=== PATIENT | female | born 1940 | race Caucasian/White ===

== ENCOUNTER 2018-03-19 09:21 | Emergency (ER) | payer MEDICARE, MEDICAID ==
[~2018-03-19] VITALS: Ht 162.6 cm; Wt 81.6 kg
[~2018-03-19 09:21] MED LIST: ACET-868 PO; ATEN50TA PO; LISI-603 PO; METF-442 PO
--- NOTE | 2018-03-19 10:35 | NUR ---
WOUND CARE RENDERED, TOLERATED WELL.
--- NOTE | 2018-03-19 10:44 | NUR ---
JOHNNA OFFICERS AT BS.
--- NOTE | 2018-03-19 11:18 | NUR ---
Patient discharged to home in stable condition. Written and verbal after care instructions given. Patient verbalizes understanding of instruction.
[2018-03-19 11:35] VITALS: BP 155/71
== END 2018-03-19 11:37 | disposition home or self-care (01) ==
LOC: ER 09:25
DX: S51.811A Laceration without foreign body of right forearm, initial encounter (principal); S20.219A Contusion of unspecified front wall of thorax, initial encounter; E11.9 Type 2 diabetes mellitus without complications; I10 Essential (primary) hypertension; D32.9 Benign neoplasm of meninges, unspecified; V29.49XA Motorcycle driver injured in collision with other motor vehicles in traffic accident, initial encounter; Y93.89 Activity, other specified; Y92.89 Other specified places as the place of occurrence of the external cause; Y99.8 Other external cause status
CPT/HCPCS: 71045-TC; A4606; A6402; Z7610

== ENCOUNTER 2021-08-25 13:33 | Inpatient (IN) | payer MEDICARE, OTHER ==
[~2021-08-25] VITALS: Ht 167.6 cm; Wt 87.5 kg
[~2021-08-25 13:33] MED LIST changes: -LISI-603 PO; +LISI20TA30 PO
--- NOTE | 2021-08-25 13:47 | NUR ---
SENT BY DR. RODRIGUEZ FOR CHEST PAIN, HIGH BLOOD PRESSURE AND BLADDER INFECTION. PT IS MULTI DRUG RESISTANT. THE PATIENT IS ALERT AND ORIENTED X4. DENIES ANY PAIN. IN ROOM AIR AND DENIES SOB. RESPIRATION REGULAR AND UNLABORED. ATTACHED TO THE MONITOR. WILL CONTINUE TO MONITOR THE PATIENT.
--- NOTE | 2021-08-25 14:00 | NUR ---
STARTED LINE, BLOOD SPECIMEN COLLECTED AND SENT TO THE LAB. THE LINE IS SALINE LOCKED.
[2021-08-25] MEDS ORDERED: LORA-258 PO (14:37)
[2021-08-25] MEDS ORDERED: BUSP10TA35 PO (14:37)
[2021-08-25] MEDS ORDERED: MEMA5TAB42 PO (14:37)
[2021-08-25] MEDS ORDERED: LOSA1TAB39 PO (14:37)
[2021-08-25] MEDS ORDERED: CYAN500T9 PO (14:37)
[2021-08-25] MEDS ORDERED: NAPR1TAB38 PO (14:37)
[2021-08-25] MEDS ORDERED: ESTR42.511 VG (14:37)
[2021-08-25] MEDS ORDERED: CALC500T52 PO (14:37)
[2021-08-25] MEDS ORDERED: MIRT-91 PO (14:37)
[2021-08-25] MEDS ORDERED: ACET1TAB23 PO (14:37)
[2021-08-25] MEDS ORDERED: CARV25TA2 PO (14:37)
[2021-08-25] MEDS ORDERED: INSU100V7 SQ (14:37)
[2021-08-25] MEDS ORDERED: DICL100G34 TP (14:37)
[2021-08-25] MEDS ORDERED: ATOR40TA PO (14:37)
[2021-08-25] MEDS ORDERED: ALEN70TA80 PO (14:37)
[2021-08-25] MEDS ORDERED: LIDO700A30 TD (14:37)
[2021-08-25] MEDS ORDERED: APIX2.5T PO (14:37)
[2021-08-25] MEDS ORDERED: DULA1.5P SQ (14:37)
[2021-08-25] MEDS ORDERED: ERGO500093 PO (14:37)
[2021-08-25] MEDS ORDERED: ICOS1CAP PO (14:37)
[2021-08-25] MEDS ORDERED: FERR324T PO (14:37)
--- NOTE | 2021-08-25 15:08 | NUR ---
COVID SWAB DONE AND SENT TO THE LAB
[2021-08-25 15:15] LABS: BASOPHILS # (AUTO) 0.1 K/uL (0.0-0.2); BASOPHILS % (AUTO) 0.9 % (0.0-2.0); HEMATOCRIT 36 % (33-45); LYMPHOCYTES # (AUTO) 1.6 K/uL (0.8-4.8); LYMPHOCYTES % (AUTO) 24.2 % (20.0-44.0); MEAN CORPUSCULAR HGB CONC 33 g/dl (31.0-36.0); MEAN CORPUSCULAR VOLUME 83 fL (82-100); MONOCYTES # (AUTO) 0.4 K/uL (0.1-1.30); MONOCYTES % (AUTO) 6.2 % (2.0-12.0); NEUTROPHILS # (AUTO) 4.4 K/uL (1.8-8.9); NEUTROPHILS % (AUTO) 66.7 % (43.0-81.0); PLATELET COUNT (AUTO) 284 K/uL (150-450); RED BLOOD CELL COUNT(AUTO) 4.37 MIL/uL (4.0-5.2); WHITE BLOOD COUNT (AUTO) 6.6 K/uL (4.3-11.0)
[2021-08-25 15:16] LABS: BILIRUBIN,URINE NEGATIVE (NEGATIVE); COLOR,URINE YELLOW (YELLOW); LEUKOCYTE ESTERASE ,URINE LARGE (NEGATIVE); NITRITE, URINE POSITIVE (NEGATIVE); PH,URINE 6.5 (5.0-8.0); PROTEIN,URINE TRACE mg/dl (NEGATIVE); UGLUCOSE NEGATIVE (NEGATIVE)
[2021-08-25 15:38] LABS: CALCIUM, SERUM 9.3 mg/dL (8.5-10.1); CARBON DIOXIDE 28 mmol/L (21-32); CHLORIDE 101 mmol/L (98-107); CREATININE 1.1 mg/dL (0.6-1.3); GLUCOSE 158 mg/dL (74-106); POTASSIUM 3.3 mmol/L (3.5-5.1); SODIUM SERUM 141 mmol/L (136-145); UREA NITROGEN, BLOOD 18 mg/dL (7-18)
[2021-08-25 15:51] LABS: BACTERIA,URINE 4+ /HPF (None Seen); SQUAMOUS EPITHELIAL CELL,UR Few /HPF (None Seen); WBC,URINE TOO NUMEROUS TO COUN /HPF (0-3)
[2021-08-25 15:52] LABS: ALANINE AMINOTRANSFERASE 22 U/L (12-78); ALBUMIN 3.9 g/dL (3.4-5.0); ALKALINE PHOSPHATASE 92 U/L (46-116); ASPARTATE AMINOTRANSFERASE 16 U/L (15-37); BILIRUBIN,TOTAL 0.6 mg/dL (0.2-1.0); TOTAL PROTEIN, SERUM 7.4 g/dL (6.4-8.2)
[2021-08-25] MEDS ORDERED: CEFTRIAXONE 1 G in IV D5W 50 ML IV ONE (16:00)
--- NOTE | 2021-08-25 16:05 | NUR ---
PICCLINE NURSE AT PT'S BEDSIDE. CONSENT FORM SIGNED BY PT; VERBALIZES UNDERSTANDING.
--- NOTE | 2021-08-25 16:15 | NUR ---
CALLED TO BED [phone]
--- NOTE | 2021-08-25 16:17 | NUR ---
CHRISTIAN PICCLINE PLACED; CXR ORDERED
--- NOTE | 2021-08-25 16:29 | NUR ---
MUTUEL CASHIER AT PT'S BEDSIDE
[2021-08-25] MEDS ORDERED: MAGNESIUM HYDROXIDE 30 ML UDC PO PRN (16:30)
[2021-08-25] MEDS ORDERED: MORPHINE SULFATE INJ 2 MG/ML DISP.SYRIN IV PRN (16:30)
[2021-08-25] MEDS ORDERED: MAG HYDROX/AL HYDROX/SIMETH 30 ML UDC PO PRN (16:30)
[2021-08-25] MEDS ORDERED: DEXTROSE 50%-WATER 50 ML DISP.SYRIN IV PRN (16:30)
[2021-08-25] MEDS ORDERED: ONDANSETRON HCL/PF 4 MG/2 ML VIAL IVP PRN (16:30)
[2021-08-25] MEDS ORDERED: LORAZEPAM 0.5 MG TABLET PO PRN (16:30)
[2021-08-25] MEDS ORDERED: ACETAMINOPHEN W/ CODEINE#3 1 EA TABLET PO PRN (16:30)
[2021-08-25] MEDS ORDERED: Z GUARD REMEDY 2 OZ OINT TP PRN (16:30)
[2021-08-25] MEDS ORDERED: POTASSIUM CHLORIDE 20 MEQ TAB.PRT.SR PO ONE ×2 (16:30→16:50)
--- NOTE | 2021-08-25 16:37 | NUR ---
REPORT GIVEN TO TANVI Spann RN FOR DIANA
[2021-08-25] MEDS ORDERED: NITROGLYCERIN PACKET 1 GM PACKET ONE (16:49)
[2021-08-25] MEDS: NITROGLYCERIN PACKET 1 GM PACKET TOP SCH ×3 (16:56→21:50)
--- NOTE | 2021-08-25 16:59 | NUR ---
THE PATIENT IS TRANSFERED TO [facility] IN STABLE CONDITION PER ACLS POLICY.
[2021-08-25] MEDS ORDERED: Medication Not On Formulary EA (Icosapent Ethyl (Vascepa) 2 GM) PO SCH (17:00)
--- NOTE | 2021-08-25 17:20 | NUR ---
PLASTIC PRESS OPERATOR NOTE RECEIVED PATIENT VIA GURNEY FROM ER. PATIENT IS A/O X4. PATIENT IS BREATHING EVENLY AND NONLABORED ON ROOM AIR. NO SIGNS OF DISTRESS NOTED, PATIENT COMPLAINS OF MILD CHEST PAIN. TELE MONITOR PLACED ON PATIENT. PATIENT HAS IV ACCESS TO CHRISTIAN PICC LINE, PATENT AND INTACT. SKIN CHECK PERFORMED C/D/I. NO EDEMA. ACTIVE BOWEL SOUNDS. PATIENT WAS PLACED ON ISOLATION PRECAUTIONS CONTACT FOR MDRO. PATIENT WAS ORIENTED TO THE ROOM AND HOW TO USE THE CALL LIGHT, BELONGINGS ACCOUNTED FOR. SAFETY MEASURES IN PLACE BED LOW LOCK AND CALL LIGHT WITHIN REACH. WILL CONTINUE TO MONITOR
--- NOTE | 2021-08-25 17:21 | NUR ---
RN NOTE VITALS BP 154/77, HR 76, RR 18, TEMP 97.7, O2 SAT 100 ON ROOM AIR.
[2021-08-25] MEDS: BLOOD SUGAR DIAGNOSTIC 1 EACH STRIP VI SCH ×2 (17:30→22:00)
[2021-08-25] MEDS: CALCIUM CARBONATE (1250) 500 MG TABLET PO SCH (17:30)
[2021-08-25] MEDS: ATORVASTATIN 40 MG TABLET PO SCH (17:30)
[2021-08-25] MEDS: MEMANTINE HCL 5 MG TABLET PO SCH (17:30)
[2021-08-25] MEDS: CARVEDILOL 12.5 MG TABLET PO SCH (17:31)
[2021-08-25] MEDS: APIXABAN 2.5 MG TABLET PO SCH (17:31)
[2021-08-25] MEDS: INSULIN REGULAR, HUMAN 100 UNIT/ML 3 ML VIAL SQ PRN (17:48)
--- NOTE | 2021-08-25 18:29 | NUR ---
SLIP COVER MAKER CLOSING NOTE PATIENT RESTING IN BED. PATIENT IS A/O X4. PATIENT IS BREATHING EVENLY AND NONLABORED ON ROOM AIR. NO SIGNS OF DISTRESS NOTED, PATIENT DENIES PAIN AT THIS TIME. TELE MONITOR ON PATIENT SHOWING NSR WITH OCCASIONAL PVCS. PATIENT HAS IV ACCESS TO CHRISTIAN PICC LINE, PATENT AND INTACT. PATIENT ON ISOLATION PRECAUTIONS CONTACT FOR MDRO. SAFETY MEASURES IN PLACE BED LOW LOCK AND CALL LIGHT WITHIN REACH, BED ALARM ON, WILL ENDORSE TO ONCOMING SHIFT
--- NOTE | 2021-08-25 19:45 | NUR ---
ENGINEERING AGENT OPENING NOTES PATIENT RESTING IN BED, ALERT/ORIENTED X 4, PT ABLE TO MAKE NEEDS KNOWN, PT DENIES PAIN AT THIS TIME. PATIENT IS BREATHING EVENLY AND UNLABORED ON ROOM AIR, NO SIGNS/SYMPTOMS OF DISTRESS NOTED. PT ON EXTERNAL SUPERVISOR ASSEMBLY ROOM SHOWING SINUS RHYTHM, HR: 69. IV ACCESS ON CHRISTIAN PICC LINE, PATENT AND INTACT. PATIENT ON ISOLATION PRECAUTIONS CONTACT FOR MDRO. SAFETY MEASURES IN PLACE: BED LOCKED IN LOW POSITION, SIDE RAILS UP X 2, CALL LIGHT WITHIN REACH, BED ALARM ON. WILL CONTINUE TO MONITOR PATIENT
[2021-08-25 20:00] VITALS: BP 124/72
[2021-08-25] MEDS: MIRTAZAPINE 15 MG TABLET PO SCH (21:50)
[2021-08-25] MEDS: *INSULIN REGULAR(HUMULIN R)HUM 100 UNIT/ML VIAL SQ PRN (22:18)
[2021-08-26] VITALS: BP 139/64
[2021-08-26 04:00] VITALS: BP 109/49
--- NOTE | 2021-08-26 06:23 | NUR ---
SAFETY COUNSELOR CLOSING NOTES PATIENT SLEEPING IN BED, APPEARS COMFORTABLE AND NOT IN ANY DISTRESS. NO SIGNIFICANT CHANGES THROUGHOUT SHIFT. PT DENIED CHEST PAIN THROUGHOUT SHIFT. PATIENT BREATHING EVENLY AND UNLABORED ON ROOM AIR, NO SIGNS/SYMPTOMS OF DISTRESS OR SOB NOTED. PT ON EXTERNAL SONOGRAPHER SHOWING SINUS RHYTHM, HR: 64. IV ACCESS: CHRISTIAN PICC LINE, PATENT AND INTACT. PATIENT ON ISOLATION PRECAUTIONS CONTACT FOR MDRO. MEDICATIONS GIVEN ORDERED, PT NEEDS MET THROUGHOUT SHIFT. SAFETY MEASURES IN PLACE: BED LOCKED IN LOW POSITION, SIDE RAILS UP X 2, CALL LIGHT WITHIN REACH, BED ALARM ON. WILL ENDORSE TO DAY SHIFT NURSE FOR CONTINUITY OF CARE
[2021-08-26] MEDS: ACETAMINOPHEN 325 MG TABLET PO PRN (06:49)
[2021-08-26] MEDS: BLOOD SUGAR DIAGNOSTIC 1 EACH STRIP VI SCH ×4 (07:02→21:39)
[2021-08-26] MEDS: INSULIN REGULAR, HUMAN 100 UNIT/ML 3 ML VIAL SQ PRN ×3 (07:10→17:39)
--- NOTE | 2021-08-26 07:16 | NUR ---
RN NOTES PATIENT WAS SEEN IN BED RESTING, EYES CLOSED, ABLE TO BE AWAKENED. A/O X4, SERBIAN-SPEAKING, UNDERSTANDS SOME UZBEK BUT ABLE TO MAKE NEEDS KNOWN. BREATHING EVEN AND UNLABORED, TOLERATING ROOM AIR. ON CARDIAC MONITORING, READING OF SR, HR IN THE 60'S TO 70'S, NO CARDIAC DISTRESS. PICC LINE AND PERIPHERAL IV LINE INTACT AND PATENT. PATIENT ABLE TO AMBULATE W/ SBA. SAFETY MEASURES IN PLACE. WILL CONTINUE TO MONITOR.
[2021-08-26 07:25] LABS: CALCIUM, SERUM 9.4 mg/dL (8.5-10.1); CREATININE 0.9 mg/dL (0.6-1.3); MAGNESIUM 1.6 mg/dL (1.8-2.4); PHOSPHORUS 4.2 mg/dL (2.5-4.9)
[2021-08-26 07:38] LABS: BASOPHILS # (AUTO) 0.1 K/uL (0.0-0.2); BASOPHILS % (AUTO) 1.1 % (0.0-2.0); EOSINOPHILS % (AUTO) 3.3 % (0.0-6.0); HEMATOCRIT 32 % (33-45); HEMOGLOBIN 10.9 g/dL (11.5-14.8); LYMPHOCYTES # (AUTO) 1.3 K/uL (0.8-4.8); LYMPHOCYTES % (AUTO) 24.1 % (20.0-44.0); MEAN CORPUSCULAR HGB CONC 34 g/dl (31.0-36.0); MEAN CORPUSCULAR VOLUME 83 fL (82-100); MONOCYTES # (AUTO) 0.4 K/uL (0.1-1.30); MONOCYTES % (AUTO) 7.6 % (2.0-12.0); NEUTROPHILS # (AUTO) 3.5 K/uL (1.8-8.9); NEUTROPHILS % (AUTO) 63.9 % (43.0-81.0); PLATELET COUNT (AUTO) 228 K/uL (150-450); RED BLOOD CELL COUNT(AUTO) 3.88 MIL/uL (4.0-5.2); WHITE BLOOD COUNT (AUTO) 5.4 K/uL (4.3-11.0)
[2021-08-26 08:00] VITALS: BP 155/73
[2021-08-26] MEDS: LIDOCAINE 5% (PATCH) 1 EA PATCH TP SCH (08:43)
[2021-08-26] MEDS: NITROGLYCERIN PACKET 1 GM PACKET TOP SCH ×2 (08:47→20:32)
[2021-08-26] MEDS: ASPIRIN 81 MG TAB.CHEW PO SCH (08:47)
[2021-08-26] MEDS: FERROUS SULFATE (325 MG) 325 MG/TAB TABLET PO SCH (08:47)
[2021-08-26] MEDS: busPIRone 5 MG TABLET PO SCH (08:47)
[2021-08-26] MEDS: CARVEDILOL 12.5 MG TABLET PO SCH ×2 (08:48→17:10)
[2021-08-26] MEDS: MEMANTINE HCL 5 MG TABLET PO SCH ×2 (08:48→17:09)
[2021-08-26] MEDS: APIXABAN 2.5 MG TABLET PO SCH ×2 (08:49→17:10)
[2021-08-26] MEDS ORDERED: CEFTRIAXONE 1GM BAG (ER ONLY) 1 GM/50 ML PIGGYBACK IV SCH (09:00)
--- NOTE | 2021-08-26 09:30 | NUR ---
RN NOTES PATIENT SEEN BY DR. GRECO W/ ORDER NOTED.
[2021-08-26] MEDS: Magnesium 1GM/D5W 100ML PREMIX 100 ML IV SCH ×2 (09:36→11:55)
--- NOTE | 2021-08-26 10:01 | NUR ---
RN NOTES CONSENT FORM SIGNED BY PATIENT FOR CT ANGIO OF THE HEART PROCEDURE. PER PATIENT, SHE IS TAKING METFORMIN AT HOME, NOTED IN THE CONTRAST CONSENT FORM.
[2021-08-26] MEDS ORDERED: IV NS 0.9% 250 ML IV ONE (10:45)
[2021-08-26] MEDS ORDERED: IOHEXOL-350 100 ML VIAL IV ONE (10:45)
--- NOTE | 2021-08-26 11:45 | NUR ---
RN NOTES PATIENT RETURNED FROM CTCA PROCEDURE VIA WHEELCHAIR, ACCOMPANIED BY 1 SUPPLY AIDE.
[2021-08-26 12:00] VITALS: BP 146/77
[2021-08-26 15:52] VITALS: BP 140/75
[2021-08-26] MEDS: CEFTRIAXONE 1 G in IV D5W 50 ML IV SCH (16:12)
[2021-08-26] MEDS: CALCIUM CARBONATE (1250) 500 MG TABLET PO SCH (17:09)
[2021-08-26] MEDS: ATORVASTATIN 40 MG TABLET PO SCH (17:09)
--- NOTE | 2021-08-26 19:15 | NUR ---
RN NOTES PATIENT RESTING IN BED, NOT IN ACUTE DISTRESS. REFUSED TELE AT THIS TIME. DUE MEDS GIVEN TODAY. AMBULATES W/ STEADY GAIT. SAFETY MEASURES MAINTAINED. ENDORSED TO NANOTECHNOLOGY ENGINEERING TECHNOLOGIST RN FOR DIANA.
--- NOTE | 2021-08-26 20:00 | NUR ---
SHEAR GRINDER OPERATOR HELPER OPENING NOTES PATIENT RESTING IN BED, ALERT/ORIENTED X 4, PT PRIMARILY PRYDEINIG SPEAKING BUT ABLE TO SPEAK SOME SERBIAN, PT ABLE TO MAKE NEEDS KNOWN. PT DENIES PAIN AND DISCOMFORT AT THIS TIME. PATIENT IS BREATHING EVENLY AND UNLABORED ON ROOM AIR, NO SIGNS/SYMPTOMS OF DISTRESS NOTED. PT ON EXTERNAL REPORTING LEAD SHOWING SINUS RHYTHM, HR: 66. IV ACCESS ON CHRISTIAN PICC LINE, PATENT AND INTACT. PATIENT ON CONTACT ISOLATION PRECAUTIONS. SAFETY MEASURES IN PLACE: BED LOCKED IN LOW POSITION, SIDE RAILS UP X 2, CALL LIGHT AND TABLE WITHIN REACH. WILL CONTINUE TO MONITOR PATIENT
[2021-08-26 20:39] VITALS: BP 154/77
[2021-08-26] MEDS: MIRTAZAPINE 15 MG TABLET PO SCH (21:39)
[2021-08-26] MEDS: *INSULIN REGULAR(HUMULIN R)HUM 100 UNIT/ML VIAL SQ PRN (21:41)
[2021-08-27] VITALS (7 sets, daily range): BP systolic 112–153; BP diastolic 73–78
--- NOTE | 2021-08-27 06:36 | NUR ---
POTABLE WATER TREATMENT OPERATOR CLOSING NOTES PATIENT SLEEPING IN BED, APPEARS COMFORTABLE AND NOT IN ANY DISTRESS. NO SIGNIFICANT CHANGES THROUGHOUT SHIFT. PT DENIED CHEST PAIN THROUGHOUT SHIFT. PATIENT BREATHING EVENLY AND UNLABORED ON ROOM AIR, NO SIGNS/SYMPTOMS OF DISTRESS OR SOB NOTED. PT ON EXTERNAL PRINTED PRODUCTS ASSEMBLER SHOWING SINUS RHYTHM, HR: 68. IV ACCESS: CHRISTIAN PICC LINE, PATENT AND INTACT. PATIENT ON CONTACT ISOLATION PRECAUTIONS. MEDICATIONS GIVEN ORDERED, PT NEEDS MET THROUGHOUT SHIFT. SAFETY MEASURES IN PLACE: BED LOCKED IN LOW POSITION, SIDE RAILS UP X 2, CALL LIGHT WITHIN REACH. WILL ENDORSE TO ONCOMING NURSE FOR CONTINUITY OF CARE
[2021-08-27] MEDS: BLOOD SUGAR DIAGNOSTIC 1 EACH STRIP VI SCH ×4 (06:57→22:21)
[2021-08-27] MEDS: INSULIN REGULAR, HUMAN 100 UNIT/ML 3 ML VIAL SQ PRN ×4 (06:59→22:21)
--- NOTE | 2021-08-27 07:13 | NUR ---
RN NOTES PATIENT WAS SEEN IN BED RESTING, EYES CLOSED, ABLE TO BE AWAKENED. A/O X4, ANDORRAN-SPEAKING, UNDERSTANDS SOME SERBIAN BUT ABLE TO MAKE NEEDS KNOWN. BREATHING EVEN AND UNLABORED, TOLERATING ROOM AIR. ON CARDIAC MONITORING, READING OF SR, HR IN THE 70'S, NO CARDIAC DISTRESS. PICC LINE AND PERIPHERAL IV LINE INTACT AND PATENT. PATIENT ABLE TO AMBULATE W/ SBA. SAFETY MEASURES IN PLACE. WILL CONTINUE TO MONITOR.
[2021-08-27 07:29] LABS: BASOPHILS # (AUTO) 0.1 K/uL (0.0-0.2); BASOPHILS % (AUTO) 1.2 % (0.0-2.0); EOSINOPHILS % (AUTO) 3.8 % (0.0-6.0); HEMATOCRIT 35 % (33-45); HEMOGLOBIN 11.2 g/dL (11.5-14.8); LYMPHOCYTES # (AUTO) 1.2 K/uL (0.8-4.8); LYMPHOCYTES % (AUTO) 24.8 % (20.0-44.0); MEAN CORPUSCULAR HGB CONC 33 g/dl (31.0-36.0); MEAN CORPUSCULAR VOLUME 83 fL (82-100); MONOCYTES # (AUTO) 0.3 K/uL (0.1-1.30); NEUTROPHILS # (AUTO) 3.1 K/uL (1.8-8.9); NEUTROPHILS % (AUTO) 63.2 % (43.0-81.0); PLATELET COUNT (AUTO) 234 K/uL (150-450); RED BLOOD CELL COUNT(AUTO) 4.16 MIL/uL (4.0-5.2)
[2021-08-27 08:04] LABS: CALCIUM, SERUM 9.9 mg/dL (8.5-10.1)
--- NOTE | 2021-08-27 09:10 | NUR ---
RN NOTES PATIENT SEEN BY DR. MENDOZA TODAY FOR FOLLOW-UP.
[2021-08-27] MEDS: LIDOCAINE 5% (PATCH) 1 EA PATCH TP SCH (09:30)
[2021-08-27] MEDS: NITROGLYCERIN PACKET 1 GM PACKET TOP SCH ×2 (09:31→21:44)
[2021-08-27] MEDS: busPIRone 5 MG TABLET PO SCH (09:31)
[2021-08-27] MEDS: CARVEDILOL 12.5 MG TABLET PO SCH ×2 (09:32→16:52)
[2021-08-27] MEDS: VALSARTAN 80 MG TABLET PO SCH (09:33)
[2021-08-27] MEDS: MEMANTINE HCL 5 MG TABLET PO SCH ×2 (09:33→16:53)
[2021-08-27] MEDS: FERROUS SULFATE (325 MG) 325 MG/TAB TABLET PO SCH (09:33)
[2021-08-27] MEDS: ASPIRIN 81 MG TAB.CHEW PO SCH (09:33)
[2021-08-27] MEDS: APIXABAN 2.5 MG TABLET PO SCH ×2 (09:35→17:14)
--- NOTE | 2021-08-27 13:15 | NUR ---
RN NOTES PATIENT CURRENTLY SLEEPING IN BED AT THE MOMENT. PROVIDED W/ EXTRA BLANKET.
[2021-08-27] MEDS: CEFTRIAXONE 1 G in IV D5W 50 ML IV SCH (15:51)
[2021-08-27] MEDS: ATORVASTATIN 40 MG TABLET PO SCH (16:53)
[2021-08-27] MEDS: CALCIUM CARBONATE (1250) 500 MG TABLET PO SCH (16:53)
--- NOTE | 2021-08-27 18:47 | NUR ---
RN NOTES PATIENT IN BED RESTING, AWAKE AND VERBALLY RESPONSIVE. NOT IN ACUTE DISTRESS. TOLERATES ROOM AIR. PICC LINE PATENT AND INTACT. AMBULATES W/ STEADY GAIT. D/C'D TELE TODAY. SAFETY MEASURES MAINTAINED. WILL ENDORSE TO SUPERVISOR MATTRESS AND BOXSPRINGS RN FOR DIANA.
--- NOTE | 2021-08-27 19:30 | NUR ---
RN OPENING NOTES: RECEIVED PT A/OX4 IN BED IN NO S/SX OF ACUTE DISTRESS AT THIS TIME. NO SOB NOTED. PATIENT'S BREATHING IS EVEN AND UNLABORED. PATIENT IS ON ROOM AIR AND AMBULATORY; TOLERATING WELL. PATIENT ON CARDIAC DIET; TOLERATES WELL. NOTED IV SITE ON R UA PICC LINE ; PATENT, INTACT AND FLUSHING WELL; NO S/S OF INFECTION OR INFILTRATION. SAFETY MEASURES HAVE BEEN PROVIDED AND IMPLEMENTED. PATIENT BED ALARM IS ON. HEAD OF BED ELEVATED. BED IS LOCKED, IN LOWEST POSITION AND SIDE RAILS UP. CALL LIGHT WITHIN REACH OF THE PATIENT. APPLICABLE ISOLATION PRECAUTIONS IN PLACE. WILL CONTINUE TO MONITOR AND REASSESS FOR ANY CHANGES AND WILL CARRY OUT ANY ONGOING AND ACTIVE MD ORDER.
[2021-08-27] MEDS: MIRTAZAPINE 15 MG TABLET PO SCH (21:44)
--- NOTE | 2021-08-27 22:00 | NUR ---
RN NOTES ACCU CHECK DONE; 191MG/DL; 3U OF INSULIN GIVEN.
[2021-08-28] MEDS: BLOOD SUGAR DIAGNOSTIC 1 EACH STRIP VI SCH ×2 (06:35→12:26)
[2021-08-28] MEDS: *INSULIN REGULAR(HUMULIN R)HUM 100 UNIT/ML VIAL SQ PRN (06:38)
[2021-08-28] MEDS: INSULIN REGULAR, HUMAN 100 UNIT/ML 3 ML VIAL SQ PRN ×2 (06:41→12:30)
--- NOTE | 2021-08-28 06:42 | NUR ---
RN NOTES ACCU CHECK DONE; 208MG/DL; 6U OF INSULIN GIVEN.
--- NOTE | 2021-08-28 06:51 | NUR ---
RN CLOSING NOTE: PATIENT REMAINS IN ROOM IN NO SIGNS OF RESPIRATORY DISTRESS, PATIENT STILL ON ROOM AIR;TOLERATING WELL SATURATING @ >95% SP02. SAFETY MEASURES IMPLEMENTED, BED IN LOWEST POSITION, LOCKED, SIDE RAILS UP, CALL LIGHT WITHIN REACH. ALL NEEDS AND ORDERS ADDRESSED DURING THE SHIFT. IV ACCESS MAINTAINED INTACT, SECURED AND FLUSHING WELL. ALL DUE MEDS GIVEN ORDERED & SCHEDULED ; PATIENT TOLERATED WELL. PATIENT KEPT CLEAN AND COMFORTABLE WITHIN THE SHIFT. PATIENT ENDORSED TO INCOMING SHIFT RN WITH STABLE VITAL SIGN AND FOR CONTINUITY OF CARE.
--- NOTE | 2021-08-28 07:30 | NUR ---
MS RN NOTES. RECEIVED PATIENT IN BED AWAKE. ALERT AND ORIENTED TIMES 4. BELARUSIAN AND SLOVENIAN SPEAKING. EVEN AND UNLABORED BREATHS, NO SOB NO SHORTNESS OF BREATH NOTED, PATIENT AMBULATORY AND ABLE TO MAKE NEEDS KNOWN. RIGHT UPPER PICC LINE INTACT AND PATENT .SAFETY PRECAUTIONS IN PLACE. BED IN THE LOWEST POSITION AND LOCKED. TABLE AND CALL LIGHT WITHIN REACH. WILL CONTINUE TO MONITOR.
[2021-08-28 08:00] VITALS: BP 158/93
[2021-08-28 08:07] LABS: BASOPHILS # (AUTO) 0.1 K/uL (0.0-0.2); BASOPHILS % (AUTO) 1.3 % (0.0-2.0); EOSINOPHILS % (AUTO) 3.3 % (0.0-6.0); HEMATOCRIT 34 % (33-45); HEMOGLOBIN 11.3 g/dL (11.5-14.8); LYMPHOCYTES # (AUTO) 1.3 K/uL (0.8-4.8); LYMPHOCYTES % (AUTO) 26.8 % (20.0-44.0); MEAN CORPUSCULAR HGB CONC 33 g/dl (31.0-36.0); MEAN CORPUSCULAR VOLUME 82 fL (82-100); MONOCYTES # (AUTO) 0.4 K/uL (0.1-1.30); MONOCYTES % (AUTO) 7.5 % (2.0-12.0); NEUTROPHILS % (AUTO) 61.1 % (43.0-81.0); PLATELET COUNT (AUTO) 234 K/uL (150-450); RED BLOOD CELL COUNT(AUTO) 4.12 MIL/uL (4.0-5.2)
[2021-08-28] MEDS: LIDOCAINE 5% (PATCH) 1 EA PATCH TP SCH (08:11)
[2021-08-28 08:23] LABS: CALCIUM, SERUM 9.5 mg/dL (8.5-10.1); POTASSIUM 3.8 mmol/L (3.5-5.1)
[2021-08-28] MEDS: FERROUS SULFATE (325 MG) 325 MG/TAB TABLET PO SCH (08:48)
[2021-08-28] MEDS: MEMANTINE HCL 5 MG TABLET PO SCH (08:48)
[2021-08-28] MEDS: ASPIRIN 81 MG TAB.CHEW PO SCH (08:48)
[2021-08-28] MEDS: busPIRone 5 MG TABLET PO SCH (08:48)
[2021-08-28] MEDS: CARVEDILOL 12.5 MG TABLET PO SCH (08:49)
[2021-08-28] MEDS: VALSARTAN 80 MG TABLET PO SCH (08:49)
[2021-08-28 08:50] VITALS: BP 158/93
[2021-08-28] MEDS: NITROGLYCERIN PACKET 1 GM PACKET TOP SCH (08:50)
[2021-08-28] MEDS: APIXABAN 2.5 MG TABLET PO SCH (08:52)
--- NOTE | 2021-08-28 13:52 | NUR ---
RN NOTES PATIENT IS FOR DISCHARGE AFTER 1600 DOSE OF ANTIBIOTICS. PATIENT WILL BE DSICAHRGED WITH PICC LINE FOR ELECTIVE SURGERY ON MONDAY PER MD ORDER.
[2021-08-28] MEDS: CEFTRIAXONE 1 G in IV D5W 50 ML IV SCH (15:01)
[2021-08-28] MEDS: ACETAMINOPHEN 325 MG TABLET PO PRN (15:10)
--- NOTE | 2021-08-28 16:10 | NUR ---
RN NOTES DISCHARGED PATIENT IN STABLE CONDITION, VITAL SIGNS WITHIN NORMAL LIMITS. KEPT IV ACCESS ON CHRISTIAN PICC LINE PER DOCTOR'S ORDER. IV ATB ADMINISTERED PRIOR TO DC. DISCHARGE INSTRUCTIONS GIVEN TO PATIENT, FOLLOW UP INSTRUCTED, PATIENT VERBALIZED UNDERSTANDING. BELONGINGS SIGNED AND ACCOUNTED FOR. WALKED TO [facility] ACCOMPANIED BY KALA (MERARI). LEFT UNIT IN STABLE CONDITION, MD AND CHARGE NURSE AWARE OF DISCHARGE.
[2021-09-01] MEDS ORDERED: ERGOCALCIFEROL (VITAMIN D 2) 50,000 UNIT CAPSULE PO SCH (09:00)
== END 2021-08-28 17:50 | disposition home or self-care (01) | DRG 309 ==
LOC: ER 13:37 → TELE 16:34 → MED 08-27 16:00
PROVIDERS: ADMIT Internal Medicine; ATTEND Internal Medicine
PROC: 02HV33Z Insertion of Infusion Device into Superior Vena Cava, Percutaneous Approach (ICD-10-PCS; principal; 2021-08-25)
PROC: B548ZZA Ultrasonography of Superior Vena Cava, Guidance (ICD-10-PCS; 2021-08-25)
DX: I48.0 Paroxysmal atrial fibrillation (principal); N39.0 Urinary tract infection, site not specified; E11.9 Type 2 diabetes mellitus without complications; I10 Essential (primary) hypertension; I25.10 Atherosclerotic heart disease of native coronary artery without angina pectoris; I16.0 Hypertensive urgency; Z20.822 Contact with and (suspected) exposure to COVID-19; Z98.890 Other specified postprocedural states; Z79.4 Long term (current) use of insulin; Z79.01 Long term (current) use of anticoagulants; Z79.83 Long term (current) use of bisphosphonates; Z86.011 Personal history of benign neoplasm of the brain; Z79.899 Other long term (current) drug therapy; Z79.84 Long term (current) use of oral hypoglycemic drugs; Z86.14 Personal history of Methicillin resistant Staphylococcus aureus infection; D64.9 Anemia, unspecified; E66.9 Obesity, unspecified; Z68.31 Body mass index [BMI] 31.0-31.9, adult; E78.5 Hyperlipidemia, unspecified; F41.9 Anxiety disorder, unspecified; E87.6 Hypokalemia
CPT/HCPCS: 36415; 36569; 38221; 71045-TC; 75574; 80048-TC; 80053-TC; 80061-TC; 81001; 82962-TC; 83605-TC; 83735-TC; 83880; 84100-TC; 84484-TC; 85025-TC; 85730-TC; 87040-TC; 87081-TC; 87086-TC; 87186-TC; 93307-TC; C9803; G0378; J0696; J1815; J3475; J7050; J7060; Q9967

== ENCOUNTER 2022-05-04 13:35 | Emergency (ER) | payer OTHER ==
[~2022-05-04] VITALS: Ht 165.1 cm; Wt 87.5 kg
[~2022-05-04 13:35] MED LIST changes: -ACET-868 PO; +ACET1TAB23 PO; +ALEN70TA80 PO; +APIX2.5T PO; -ATEN50TA PO; +ATOR40TA PO; +BUSP10TA35 PO; +CALC500T52 PO; +CARV25TA2 PO; +CYAN500T9 PO; +DICL100G34 TP; +DULA1.5P SQ; +ERGO500093 PO; +ESTR42.511 VG; +FERR324T PO; +ICOS1CAP PO; +INSU100V7 SQ; +LIDO700A30 TD; -LISI20TA30 PO; +LORA-258 PO; +LOSA1TAB39 PO; +MEMA5TAB42 PO; +MIRT-91 PO; +NAPR1TAB38 PO
[2022-05-04 14:24] LABS: BILIRUBIN,URINE NEGATIVE (NEGATIVE); COLOR,URINE YELLOW (YELLOW); LEUKOCYTE ESTERASE ,URINE SMALL (NEGATIVE); NITRITE, URINE NEGATIVE (NEGATIVE); PH,URINE 5.5 (5.0-8.0); PROTEIN,URINE 100 mg/dl (NEGATIVE); UGLUCOSE >=1000 mg/dL (NEGATIVE); UROBILINOGEN,URINE 0.2 EU/dL (0.2)
[2022-05-04] MEDS ORDERED: ACETAMINOPHEN 325 MG TABLET PO ONE (15:30)
[2022-05-04 15:43] LABS: RBC,URINE TOO NUMEROUS TO COUN /HPF (0-2); WBC,URINE 21-50 /HPF (0-3)
[2022-05-04 15:44] LABS: BACTERIA,URINE 2+ /HPF (None Seen); SQUAMOUS EPITHELIAL CELL,UR 0-2 /HPF (None Seen)
[2022-05-04] MEDS ORDERED: ACETAMINOPHEN 325 MG TABLET ONE (16:20)
[2022-05-04] MEDS ORDERED: CEPH500C2 PO (16:30)
[2022-05-04] MEDS ORDERED: CEPHALEXIN MONOHYDRATE 500 MG CAPSULE PO ONE ×2 (16:30→16:34)
--- NOTE | 2022-05-04 17:06 | NUR ---
[facility] CALLED - THE PATIENT NEEDS HOME TRANPORTATION INTAKE - [facility] NUMBER TO CALL BACK AND FOLLOW UP [phone]
[2022-05-04 17:45] VITALS: BP 118/65
--- NOTE | 2022-05-04 17:46 | NUR ---
MARS FROM [facility] CALLED AND [facility] TRANSPORT WILL BE THERE AT [phone]
== END 2022-05-04 18:02 | disposition home or self-care (01) ==
LOC: ER 13:39
DX: N39.0 Urinary tract infection, site not specified (principal); R31.9 Hematuria, unspecified; I10 Essential (primary) hypertension; Z79.899 Other long term (current) drug therapy
CPT/HCPCS: 81001; 87086-TC

== ENCOUNTER 2022-05-23 15:39 | Emergency (ER) | payer OTHER ==
[~2022-05-23] VITALS: Ht 165.1 cm; Wt 86.6 kg
[~2022-05-23 15:39] MED LIST changes: +CEPH500C2 PO
--- NOTE | 2022-05-23 15:45 | NUR ---
HERMINIO 99 FROM HOME W/ C/O CHEST PRESSURE SINCE YESTERDAY; PT STATES THAT SHE'S PAIN-FREE UPON ARRIVAL. PT IS A/O, VERBALLY RESPONSIVE. TO ER BED 3.
--- NOTE | 2022-05-23 16:10 | NUR ---
DR MORGAN AT BEDSIDE FOR EVAL
--- NOTE | 2022-05-23 16:20 | NUR ---
IV LINE ESTABLISHED ON RAC#20, BLOOD DRAWN AND SENT TO LAB.
[2022-05-23] MEDS ORDERED: ONDANSETRON HCL/PF 4 MG/2 ML VIAL ONE (16:21)
[2022-05-23 16:27] LABS: BASOPHILS % (AUTO) 0.7 % (0.0-2.0); EOSINOPHILS % (AUTO) 1.4 % (0.0-6.0); HEMATOCRIT 36 % (33-45); HEMOGLOBIN 11.7 g/dL (11.5-14.8); LYMPHOCYTES # (AUTO) 1.3 K/uL (0.8-4.8); LYMPHOCYTES % (AUTO) 17.9 % (20.0-44.0); MEAN CORPUSCULAR HGB CONC 32 g/dl (31.0-36.0); MEAN CORPUSCULAR VOLUME 81 fL (82-100); MONOCYTES # (AUTO) 0.6 K/uL (0.1-1.30); MONOCYTES % (AUTO) 8.1 % (2.0-12.0); NEUTROPHILS # (AUTO) 5.1 K/uL (1.8-8.9); NEUTROPHILS % (AUTO) 71.9 % (43.0-81.0); PLATELET COUNT (AUTO) 215 K/uL (150-450); RED BLOOD CELL COUNT(AUTO) 4.44 MIL/uL (4.0-5.2); WHITE BLOOD COUNT (AUTO) 7.1 K/uL (4.3-11.0)
[2022-05-23] MEDS ORDERED: ONDANSETRON HCL/PF 4 MG/2 ML VIAL IVP ONE (16:30)
[2022-05-23] MEDS ORDERED: IV NS 0.9% 1,000 ML BAG IV ONE (16:30)
[2022-05-23 16:43] LABS: CALCIUM, SERUM 9.6 mg/dL (8.5-10.1); CARBON DIOXIDE 32 mmol/L (21-32); CHLORIDE 101 mmol/L (98-107); CREATININE 1.1 mg/dL (0.6-1.3); GLUCOSE 213 mg/dL (74-106); POTASSIUM 3.4 mmol/L (3.5-5.1); SODIUM SERUM 139 mmol/L (136-145); UREA NITROGEN, BLOOD 25 mg/dL (7-18)
[2022-05-23 17:14] LABS: ALBUMIN 3.1 g/dL (3.4-5.0); BILIRUBIN,DIRECT 0.2 mg/dL (0.0-0.2); BILIRUBIN,TOTAL 0.7 mg/dL (0.2-1.0)
[2022-05-23] MEDS ORDERED: ONDA4TAB5 PO (20:40)
--- NOTE | 2022-05-23 20:44 | NUR ---
Patient discharged to home in stable condition. Written and verbal after care instructions given. Patient verbalizes understanding of instruction.
[2022-05-23 20:45] VITALS: BP 110/55
--- NOTE | 2022-05-23 21:21 | NUR ---
PT'S FAMILY MEMBER UNABLE TO RENTAL MANAGER PT FOR D/C. CALLED [facility] TO SET UP TRANSPORTATION FOR DC. SPOKE TO [facility]; AWAITING CALL BACK FOR ETA.
--- NOTE | 2022-05-23 21:57 | NUR ---
[facility] ETA 2300 PER LALY WATKINSP
== END 2022-05-23 23:19 | disposition home or self-care (01) ==
LOC: ER 15:48
DX: R07.89 Other chest pain (principal); E11.65 Type 2 diabetes mellitus with hyperglycemia; R11.10 Vomiting, unspecified; I10 Essential (primary) hypertension; Z98.890 Other specified postprocedural states; Z79.899 Other long term (current) drug therapy; Z79.4 Long term (current) use of insulin; Z79.84 Long term (current) use of oral hypoglycemic drugs
CPT/HCPCS: 99285; 96374; 71045; 96361; 93005 ×3; 85025; 80048; 83690; 80076; 36415; 84484 ×2; J2405

== ENCOUNTER 2022-09-23 20:28 | Inpatient (IN) | payer OTHER ==
[~2022-09-23] VITALS: Ht 165.1 cm; Wt 85.7 kg
[~2022-09-23 20:28] MED LIST changes: +ONDA4TAB5 PO
--- NOTE | 2022-09-23 20:36 | NUR ---
[id number] FROM HOME C/O N/V STARTED IN THE MORNING. PLACED ON BED, AAOX4, NAUSEATED.
--- NOTE | 2022-09-23 20:45 | NUR ---
BILINGUAL CUSTOMER SERVICE SPECIALIST AT PT'S BEDSIDE
[2022-09-23] MEDS ORDERED: ONDANSETRON HCL/PF 4 MG/2 ML VIAL IVP ONE (21:00)
[2022-09-23] MEDS ORDERED: ONDANSETRON HCL/PF 4 MG/2 ML VIAL ONE (21:02)
--- NOTE | 2022-09-23 21:06 | NUR ---
DR ELVIE LORENZO AT PT'S BEDSIDE
[2022-09-23 21:18] LABS: EOSINOPHILS % (AUTO) 0.1 % (0.0-6.0); HEMATOCRIT 39 % (33-45); HEMOGLOBIN 12.6 g/dL (11.5-14.8); LYMPHOCYTES # (AUTO) 1.1 K/uL (0.8-4.8); LYMPHOCYTES % (AUTO) 41.5 % (20.0-44.0); MEAN CORPUSCULAR HGB CONC 32 g/dl (31.0-36.0); MEAN CORPUSCULAR VOLUME 79 fL (82-100); MONOCYTES # (AUTO) 0.4 K/uL (0.1-1.30); MONOCYTES % (AUTO) 14.8 % (2.0-12.0); NEUTROPHILS # (AUTO) 1.1 K/uL (1.8-8.9); NEUTROPHILS % (AUTO) 42.6 % (43.0-81.0); PLATELET COUNT (AUTO) 194 K/uL (150-450); RED BLOOD CELL COUNT(AUTO) 4.97 MIL/uL (4.0-5.2); WHITE BLOOD COUNT (AUTO) 2.6 K/uL (4.3-11.0)
--- NOTE | 2022-09-23 21:23 | NUR ---
URINE SAMPLE SENT TO LAB
[2022-09-23 21:42] LABS: ALANINE AMINOTRANSFERASE 32 U/L (12-78); ALBUMIN 3.2 g/dL (3.4-5.0); ALKALINE PHOSPHATASE 129 U/L (46-116); ASPARTATE AMINOTRANSFERASE 22 U/L (15-37); BILIRUBIN,DIRECT 0.2 mg/dL (0.0-0.2); BILIRUBIN,TOTAL 0.4 mg/dL (0.2-1.0); CALCIUM, SERUM 8.9 mg/dL (8.5-10.1); CARBON DIOXIDE 27 mmol/L (21-32); CHLORIDE 99 mmol/L (98-107); GLUCOSE 332 mg/dL (74-106); LIPASE 53 U/L (73-393); POTASSIUM 3.9 mmol/L (3.5-5.1); SODIUM SERUM 135 mmol/L (136-145); UREA NITROGEN, BLOOD 26 mg/dL (7-18)
[2022-09-23 22:08] LABS: LYMPHOCYTES % (MANUAL) 44 % (16-48); MONOCYTES % (MANUAL) 13 % (0-11.0); NEUTROPHILS % (MANUAL) 43 (42-76)
--- NOTE | 2022-09-23 22:17 | NUR ---
SWAB FOR COVID19 AND RAPID INFLUENZA
--- NOTE | 2022-09-23 22:25 | NUR ---
PT TAKEN TO CT VIA VESNA
[2022-09-23 23:04] LABS: BILIRUBIN,URINE NEGATIVE (NEGATIVE); COLOR,URINE YELLOW (YELLOW); LEUKOCYTE ESTERASE ,URINE 1+ (NEGATIVE); NITRITE, URINE POSITIVE (NEGATIVE); PH,URINE 5.5 (5.0-8.0); PROTEIN,URINE 2+ mg/dl (NEGATIVE); UGLUCOSE 3+ mg/dL (NEGATIVE); UROBILINOGEN,URINE 0.2 EU/dL (0.2)
[2022-09-23] MEDS ORDERED: IV NS 0.9% 1,000 ML IV ONE (23:30)
[2022-09-23] MEDS ORDERED: CEFTRIAXONE 1GM BAG (ER ONLY) 50 ML IV ONE ×2 (23:30→23:34)
[2022-09-23 23:41] LABS: BACTERIA,URINE Many /HPF (None Seen); SQUAMOUS EPITHELIAL CELL,UR Rare /HPF (None Seen)
[2022-09-23 23:43] LABS: WBC,URINE TOO NUMEROUS TO COUN /HPF (0-3)
[2022-09-24] MEDS ORDERED: MORPHINE SULFATE INJ 2 MG/ML DISP.SYRIN IV ONE
[2022-09-24] MEDS ORDERED: LIDOCAINE VISCOUS 2% UD 15 ML UDC ONE (00:03)
--- NOTE | 2022-09-24 00:20 | NUR ---
VINH TRUCKING SUPERVISOR AT PT'S BEDSIDE FOR EVAL
--- NOTE | 2022-09-24 00:22 | NUR ---
NURSERY MANAGER AT PT'S BEDSIDE
[2022-09-24] MEDS ORDERED: MAGNESIUM HYDROXIDE 30 ML UDC PO PRN (01:00)
[2022-09-24] MEDS ORDERED: ZOLPIDEM TARTRATE 5 MG TABLET PO PRN (01:00)
[2022-09-24] MEDS ORDERED: ACETAMINOPHEN 325 MG TABLET PO PRN (01:00)
[2022-09-24] MEDS ORDERED: DEXTROSE 50%-WATER 50 ML DISP.SYRIN IV PRN (01:00)
[2022-09-24] MEDS ORDERED: MAG HYDROX/AL HYDROX/SIMETH 30 ML UDC PO PRN (01:00)
[2022-09-24] MEDS ORDERED: INSULIN REGULAR, HUMAN 100 UNIT/ML 3 ML VIAL SQ PRN (01:00)
[2022-09-24] MEDS ORDERED: Z GUARD REMEDY 4 OZ OINT TP PRN (01:00)
[2022-09-24] MEDS ORDERED: hydrALAZINE HCL IV 20 MG VIAL IV PRN (01:00)
[2022-09-24] MEDS ORDERED: ONDANSETRON HCL/PF 4 MG/2 ML VIAL IVP PRN (01:00)
[2022-09-24] MEDS ORDERED: IV D5/ 0.9% NACL 1,000 ML IV PRN (01:00)
[2022-09-24] MEDS ORDERED: MORPHINE SULFATE INJ 4 MG/ML DISP.SYRIN ONE (01:05)
--- NOTE | 2022-09-24 01:26 | NUR ---
INSERTED NGT 14FR TO R NARE AT 60CM. VERFIED PLACEMENT VIA AUSCULTATION AND ASPIRATIONS. AWAITING XRAY FOR CONFIRMED PLACEMENT.
[2022-09-24] MEDS ORDERED: CEFTRIAXONE 1 G in IV D5W 50 ML IV SCH ×2 (01:30→23:00)
--- NOTE | 2022-09-24 01:30 | NUR ---
ROCEPHIN 1GM NON-ADMINSTERED DUE TO BEING GIVEN IN ED.
--- NOTE | 2022-09-24 04:23 | NUR ---
PT SLEEPING COMOFORTABLY CALL LIGHT IN REACH. REMAINS ON MONITOR AND V/S REMAIN STABLE.
[2022-09-24] MEDS ORDERED: MORPHINE SULFATE INJ 4 MG/ML DISP.SYRIN IV PRN ×2 (07:30)
[2022-09-24] MEDS: BLOOD SUGAR DIAGNOSTIC 1 EACH STRIP IN SCH ×4 (07:30→22:00)
[2022-09-24 08:45] VITALS: BP 125/78
[2022-09-24] MEDS: HEPARIN SODIUM, PORCINE 5000 UNITS/1 ML VIAL SQ SCH ×2 (09:00→21:00)
[2022-09-24] MEDS: PANTOPRAZOLE 40 MG VIAL IV SCH (09:00)
--- NOTE | 2022-09-24 09:23 | NUR ---
IV removed. Catheter intact and site benign. Pressure and 4x4 applied to site. No bleeding noted.
--- NOTE | 2022-09-24 09:30 | NUR ---
RN NOTES PATIENT LEFT HOSPITAL AGAINST MEDICAL ADVICE. PATIENT WAS WARNED OF RISKS OF LEAVING HOSPITAL BEFORE BEING CLEARED BY MD AND INSISTED ON LEAVING. PATIENT LEFT HOSPITAL AT 0930 BEFORE SIGNING BELONGINGS LIST OR DISCHARGE INSTRUCTIONS SHEET. INCIDENT REPORT CREATED #[id number].
[2022-09-25] MEDS: BLOOD SUGAR DIAGNOSTIC 1 EACH STRIP IN SCH (07:30)
[2022-09-25] MEDS: HEPARIN SODIUM, PORCINE 5000 UNITS/1 ML VIAL SQ SCH (09:00)
[2022-09-25] MEDS: PANTOPRAZOLE 40 MG VIAL IV SCH (09:00)
== END 2022-09-24 09:23 | disposition left against medical advice (07) | DRG 388 ==
LOC: ER 20:37 → TRANSITION 09-24 05:28
PROVIDERS: ADMIT Nurse Practitioner Acute Care; ATTEND Internal Medicine
DX: K56.609 Unspecified intestinal obstruction, unspecified as to partial versus complete obstruction (principal); U07.1 COVID-19; N39.0 Urinary tract infection, site not specified; E11.65 Type 2 diabetes mellitus with hyperglycemia; E78.5 Hyperlipidemia, unspecified; I50.9 Heart failure, unspecified; I11.0 Hypertensive heart disease with heart failure; Z90.49 Acquired absence of other specified parts of digestive tract; F03.90 Unspecified dementia, unspecified severity, without behavioral disturbance, psychotic disturbance, mood disturbance, and anxiety; Z53.29 Procedure and treatment not carried out because of patient's decision for other reasons; Z78.9 Other specified health status; Z86.011 Personal history of benign neoplasm of the brain; Z98.890 Other specified postprocedural states; Z79.4 Long term (current) use of insulin; Z79.01 Long term (current) use of anticoagulants; Z79.83 Long term (current) use of bisphosphonates; Z79.899 Other long term (current) drug therapy; Z79.84 Long term (current) use of oral hypoglycemic drugs; K56.7 Ileus, unspecified; Z87.19 Personal history of other diseases of the digestive system
CPT/HCPCS: 36415; 71045-TC; 74018; 80048-TC; 80076-TC; 81001; 83690-TC; 84484-TC; 85025-TC; 87040-TC; 87086-TC; A6403; C9803; G0378; J0696; J1815; J2270; J2405; J7030; J7042; J7060

== ENCOUNTER 2023-10-14 09:47 | Inpatient (IN) | payer MEDICARE, OTHER ==
[~2023-10-14] VITALS: Ht 170.2 cm; Wt 84.4 kg
[2023-10-14] MEDS ORDERED: NITROGLYCERIN PACKET 1 GM PACKET TD ONE (10:00)
[2023-10-14] MEDS ORDERED: NITROGLYCERIN PACKET 1 GM PACKET ONE (10:17)
[2023-10-14 10:39] LABS: ALANINE AMINOTRANSFERASE 27 U/L (12-78); ALBUMIN 3.4 g/dL (3.4-5.0); ALKALINE PHOSPHATASE 121 U/L (46-116); ASPARTATE AMINOTRANSFERASE 9 U/L (15-37); BILIRUBIN,DIRECT 0.2 mg/dL (0.0-0.2); BILIRUBIN,TOTAL 0.8 mg/dL (0.2-1.0); CALCIUM, SERUM 9.4 mg/dL (8.5-10.1); CARBON DIOXIDE 27 mmol/L (21-32); CHLORIDE 99 mmol/L (98-107); CREATININE 0.7 mg/dL (0.6-1.3); GLUCOSE 232 mg/dL (74-106); POTASSIUM 3.6 mmol/L (3.5-5.1); SODIUM SERUM 132 mmol/L (136-145); TOTAL PROTEIN, SERUM 7.5 g/dL (6.4-8.2); UREA NITROGEN, BLOOD 17 mg/dL (7-18)
[2023-10-14 10:40] LABS: BASOPHILS # (AUTO) 0.1 K/uL (0.0-0.2); BASOPHILS % (AUTO) 1.8 % (0.0-2.0); EOSINOPHILS # (AUTO) 0.1 K/uL (0.0-0.7); EOSINOPHILS % (AUTO) 2.7 % (0.0-6.0); HEMATOCRIT 44 % (33-45); HEMOGLOBIN 14.9 g/dL (11.5-14.8); LYMPHOCYTES # (AUTO) 1.2 K/uL (0.8-4.8); LYMPHOCYTES % (AUTO) 29.2 % (20.0-44.0); MEAN CORPUSCULAR HEMOGLOBIN 29 PG (26.0-33.0); MEAN CORPUSCULAR HGB CONC 34 g/dl (31.0-36.0); MEAN CORPUSCULAR VOLUME 87 fL (82-100); MONOCYTES # (AUTO) 0.3 K/uL (0.1-1.30); MONOCYTES % (AUTO) 7.3 % (2.0-12.0); NEUTROPHILS # (AUTO) 2.5 K/uL (1.8-8.9); PLATELET COUNT (AUTO) 212 K/uL (150-450); RED CELL DISTRIBUTION WIDTH 14.6 % (11.5-15.0); WHITE BLOOD COUNT (AUTO) 4.3 K/uL (4.3-11.0)
[2023-10-14] MEDS ORDERED: LINA290C PO (10:42)
[2023-10-14] MEDS ORDERED: POTA8CAP20 PO (10:42)
[2023-10-14] MEDS ORDERED: CALC1TAB30 PO (10:42)
[2023-10-14] MEDS ORDERED: EMPA10TA PO (10:42)
[2023-10-14] MEDS ORDERED: ACET-868 PO (10:42)
[2023-10-14] MEDS ORDERED: POLY15DR40 EACHEYE (10:42)
[2023-10-14] MEDS ORDERED: DICY10CA13 PO (10:42)
[2023-10-14] MEDS ORDERED: HYDR12.55 PO (10:48)
[2023-10-14] MEDS ORDERED: MAGNESIUM HYDROXIDE 30 ML UDC PO PRN (13:00)
[2023-10-14] MEDS ORDERED: Z GUARD REMEDY 4 OZ OINT TP PRN (13:00)
[2023-10-14] MEDS ORDERED: ACETAMINOPHEN 325 MG TABLET PO PRN (13:00)
[2023-10-14] MEDS ORDERED: HYDROCODONE/APAP 5/325MG TABLET PO PRN (13:00)
[2023-10-14] MEDS ORDERED: DEXTROSE 50%-WATER 50 ML DISP.SYRIN IV PRN (13:00)
[2023-10-14] MEDS ORDERED: ONDANSETRON HCL/PF 4 MG/2 ML VIAL IVP PRN (13:00)
[2023-10-14] MEDS ORDERED: ZOLPIDEM TARTRATE 5 MG TABLET PO PRN (13:00)
[2023-10-14] MEDS ORDERED: MAG HYDROX/AL HYDROX/SIMETH 30 ML UDC PO PRN (13:00)
[2023-10-14] MEDS ORDERED: ACETAMINOPHEN 325 MG TABLET ONE (13:16)
[2023-10-14] MEDS ORDERED: HYDROCODONE/APAP 5/325MG TABLET ONE (13:16)
[2023-10-14] MEDS ORDERED: METOPROLOL TARTRATE 50 MG TABLET ONE ×2 (13:19→20:34)
[2023-10-14] MEDS: METOPROLOL TARTRATE 50 MG TABLET PO SCH ×2 (13:23→21:07)
[2023-10-14 13:28] LABS: THYROID STIMULATING HORMONE 1.115 uIU/mL (0.358-3.74)
[2023-10-14] MEDS ORDERED: POLYVINYL ALCOHOL 15 ML BOTTLE OP PRN (13:30)
[2023-10-14] MEDS ORDERED: HYDROCHLOROTHIAZIDE 25 MG TABLET ONE (14:04)
[2023-10-14] MEDS ORDERED: busPIRone 5 MG TABLET ONE (14:04)
[2023-10-14] MEDS: busPIRone HCL 10 MG TABLET PO SCH (14:04)
[2023-10-14] MEDS: HYDROCHLOROTHIAZIDE 25 MG TABLET PO SCH (14:07)
[2023-10-14] MEDS ORDERED: MEMANTINE HCL 5 MG TABLET ONE (15:01)
[2023-10-14] MEDS: MEMANTINE HCL 5 MG TABLET PO SCH (15:01)
[2023-10-14] MEDS ORDERED: METFORMIN 500 MG TABLET ONE (17:03)
[2023-10-14] MEDS ORDERED: ATORVASTATIN 10 MG TABLET ONE (17:03)
[2023-10-14] MEDS ORDERED: APIXABAN 2.5 MG TABLET ONE (17:03)
[2023-10-14] MEDS: METFORMIN 500 MG TABLET PO SCH (17:04)
[2023-10-14] MEDS: ATORVASTATIN 40 MG TABLET PO SCH (17:04)
[2023-10-14] MEDS: APIXABAN 2.5 MG TABLET PO SCH (17:04)
[2023-10-14] MEDS: BLOOD SUGAR DIAGNOSTIC 1 EACH STRIP IN SCH ×2 (17:10→23:27)
[2023-10-14] MEDS: INSULIN REGULAR, HUMAN 100 UNIT/ML 3 ML VIAL SQ PRN ×2 (17:13→23:48)
[2023-10-14] MEDS ORDERED: MIRTAZAPINE 15 MG TABLET ONE (23:16)
[2023-10-14] MEDS: MIRTAZAPINE 15 MG TABLET PO SCH (23:27)
[2023-10-15 06:56] VITALS: O2SAT 99
[2023-10-15] MEDS ORDERED: PANTOPRAZOLE 40 MG TABLET.DR PO ONE (07:33)
[2023-10-15] MEDS: BLOOD SUGAR DIAGNOSTIC 1 EACH STRIP IN SCH ×4 (07:44→22:51)
[2023-10-15] MEDS: PANTOPRAZOLE 40 MG TABLET.DR PO SCH (07:47)
[2023-10-15 08:04] LABS: EOSINOPHILS # (AUTO) 0.2 K/uL (0.0-0.7); EOSINOPHILS % (AUTO) 3.7 % (0.0-6.0); HEMATOCRIT 44 % (33-45); HEMOGLOBIN 14.5 g/dL (11.5-14.8); LYMPHOCYTES # (AUTO) 1.4 K/uL (0.8-4.8); MEAN CORPUSCULAR HEMOGLOBIN 29 PG (26.0-33.0); MEAN CORPUSCULAR HGB CONC 33 g/dl (31.0-36.0); MEAN CORPUSCULAR VOLUME 88 fL (82-100); MONOCYTES # (AUTO) 0.3 K/uL (0.1-1.30); MONOCYTES % (AUTO) 7.9 % (2.0-12.0); NEUTROPHILS # (AUTO) 2.4 K/uL (1.8-8.9); NEUTROPHILS % (AUTO) 54.4 % (43.0-81.0); PLATELET COUNT (AUTO) 198 K/uL (150-450); RED BLOOD CELL COUNT(AUTO) 4.97 MIL/uL (4.0-5.2); RED CELL DISTRIBUTION WIDTH 14.9 % (11.5-15.0); WHITE BLOOD COUNT (AUTO) 4.3 K/uL (4.3-11.0)
[2023-10-15 08:26] LABS: CALCIUM, SERUM 9.5 mg/dL (8.5-10.1); CARBON DIOXIDE 28 mmol/L (21-32); CHLORIDE 101 mmol/L (98-107); CREATININE 0.7 mg/dL (0.6-1.3); GLUCOSE 264 mg/dL (74-106); MAGNESIUM 1.9 mg/dL (1.8-2.4); PHOSPHORUS 3.8 mg/dL (2.5-4.9); POTASSIUM 4.1 mmol/L (3.5-5.1); SODIUM SERUM 136 mmol/L (136-145); UREA NITROGEN, BLOOD 15 mg/dL (7-18)
[2023-10-15] MEDS ORDERED: APIXABAN 2.5 MG TABLET ONE (08:32)
[2023-10-15] MEDS ORDERED: METFORMIN 500 MG TABLET ONE (08:33)
[2023-10-15] MEDS ORDERED: busPIRone 5 MG TABLET ONE (08:33)
[2023-10-15] MEDS ORDERED: HYDROCHLOROTHIAZIDE 25 MG TABLET ONE ×2 (08:33→08:41)
[2023-10-15] MEDS ORDERED: METOPROLOL TARTRATE 50 MG TABLET ONE (08:33)
[2023-10-15] MEDS ORDERED: MEMANTINE HCL 5 MG TABLET ONE (08:33)
[2023-10-15] MEDS: HYDROCHLOROTHIAZIDE 25 MG TABLET PO SCH (08:47)
[2023-10-15] MEDS: MEMANTINE HCL 5 MG TABLET PO SCH ×2 (08:47→16:13)
[2023-10-15] MEDS: busPIRone HCL 10 MG TABLET PO SCH (08:47)
[2023-10-15] MEDS: METFORMIN 500 MG TABLET PO SCH ×2 (08:47→16:13)
[2023-10-15] MEDS: APIXABAN 2.5 MG TABLET PO SCH ×2 (08:48→16:14)
[2023-10-15] MEDS: METOPROLOL TARTRATE 50 MG TABLET PO SCH ×3 (08:48→17:51)
[2023-10-15] MEDS: EMPAGLIFLOZIN 25 MG TABLET PO SCH (10:17)
[2023-10-15] MEDS: INSULIN REGULAR, HUMAN 100 UNIT/ML 3 ML VIAL SQ PRN ×3 (11:39→22:53)
[2023-10-15] MEDS: glipiZIDE 5 MG TABLET PO SCH ×2 (13:30→16:13)
[2023-10-15 16:00] VITALS: BP 120/60; TEMP 98.1; O2SAT 95
[2023-10-15] MEDS: ATORVASTATIN 40 MG TABLET PO SCH (17:07)
[2023-10-15 20:00] VITALS: BP 106/64; TEMP 97.5; O2SAT 95
[2023-10-15] MEDS: MIRTAZAPINE 15 MG TABLET PO SCH (21:37)
[2023-10-16] VITALS: BP 143/72; TEMP 97.5; O2SAT 95
[2023-10-16] MEDS: METOPROLOL TARTRATE 50 MG TABLET PO SCH ×4 (01:01→17:55)
[2023-10-16 04:00] VITALS: BP 116/67; TEMP 97.9; O2SAT 96
[2023-10-16] MEDS: BLOOD SUGAR DIAGNOSTIC 1 EACH STRIP IN SCH ×4 (05:57→21:38)
[2023-10-16] MEDS: INSULIN REGULAR, HUMAN 100 UNIT/ML 3 ML VIAL SQ PRN ×4 (05:59→21:40)
[2023-10-16 07:30] VITALS: BP 126/62; TEMP 97.1; O2SAT 95
[2023-10-16] MEDS: MEMANTINE HCL 5 MG TABLET PO SCH ×2 (08:15→16:20)
[2023-10-16] MEDS: PANTOPRAZOLE 40 MG TABLET.DR PO SCH (08:15)
[2023-10-16] MEDS: glipiZIDE 5 MG TABLET PO SCH ×2 (08:15→16:20)
[2023-10-16] MEDS: busPIRone 5 MG TABLET PO SCH (08:15)
[2023-10-16] MEDS: METFORMIN 500 MG TABLET PO SCH ×2 (08:16→16:20)
[2023-10-16] MEDS: HYDROCHLOROTHIAZIDE 25 MG TABLET PO SCH (08:16)
[2023-10-16] MEDS: APIXABAN 2.5 MG TABLET PO SCH ×2 (08:17→16:22)
[2023-10-16] MEDS: EMPAGLIFLOZIN 25 MG TABLET PO SCH (08:19)
[2023-10-16 16:00] VITALS: BP 117/75; TEMP 98.3; O2SAT 95
[2023-10-16] MEDS: ATORVASTATIN 40 MG TABLET PO SCH (17:55)
[2023-10-16] MEDS: MIRTAZAPINE 15 MG TABLET PO SCH (21:38)
[2023-10-17] MEDS: METOPROLOL TARTRATE 50 MG TABLET PO SCH ×3 (00:30→12:53)
[2023-10-17] MEDS: BLOOD SUGAR DIAGNOSTIC 1 EACH STRIP IN SCH ×2 (05:52→12:06)
[2023-10-17] MEDS: INSULIN REGULAR, HUMAN 100 UNIT/ML 3 ML VIAL SQ PRN ×2 (05:53→12:46)
[2023-10-17 07:30] VITALS: BP 127/46; TEMP 98.2; O2SAT 94
[2023-10-17] MEDS: EMPAGLIFLOZIN 25 MG TABLET PO SCH (08:11)
[2023-10-17] MEDS: PANTOPRAZOLE 40 MG TABLET.DR PO SCH (08:13)
[2023-10-17] MEDS: busPIRone 5 MG TABLET PO SCH (08:13)
[2023-10-17] MEDS: glipiZIDE 5 MG TABLET PO SCH (08:13)
[2023-10-17] MEDS: MEMANTINE HCL 5 MG TABLET PO SCH (08:14)
[2023-10-17] MEDS: APIXABAN 2.5 MG TABLET PO SCH (08:15)
[2023-10-17] MEDS: HYDROCHLOROTHIAZIDE 25 MG TABLET PO SCH (08:32)
[2023-10-17] MEDS: METFORMIN 500 MG TABLET PO SCH (08:40)
[2023-10-17] MEDS ORDERED: IOHEXOL-350 100 ML VIAL IV ONE ×2 (10:45→11:32)
[2023-10-17] MEDS ORDERED: CT SWABBABLE VALVE TRANS SET 1 EA INFUS.SET MC ONE (10:45)
[2023-10-17] MEDS ORDERED: METOPROLOL TARTRATE INJ 5 MG/5 ML AMPUL ONE (10:45)
[2023-10-17] MEDS ORDERED: IV NS 0.9% 250 ML IV ONE (10:45)
[2023-10-17] MEDS ORDERED: NITROGLYCERIN 0.4 MG/TAB BOTTLE ONE (10:46)
[2023-10-17] MEDS ORDERED: NITROGLYCERIN 0.4 MG/TAB BOTTLE SL ONE (11:30)
[2023-10-17] MEDS ORDERED: METOPROLOL TARTRATE INJ 5 MG/5 ML AMPUL IVP PRN (11:30)
[2023-10-17 12:53] VITALS: BP 127/68
== END 2023-10-17 16:45 | disposition home or self-care (01) | DRG 392 ==
LOC: ER 10:43 → TRANSITION 12:46 → TELE1 10-15 09:02 → TELE 10-15 09:06
PROVIDERS: ATTEND Nurse Practitioner Acute Care
DX: K22.9 Disease of esophagus, unspecified (principal); I50.32 Chronic diastolic (congestive) heart failure; F03.90 Unspecified dementia, unspecified severity, without behavioral disturbance, psychotic disturbance, mood disturbance, and anxiety; E78.5 Hyperlipidemia, unspecified; I11.0 Hypertensive heart disease with heart failure; E11.65 Type 2 diabetes mellitus with hyperglycemia; Z90.49 Acquired absence of other specified parts of digestive tract; Z79.4 Long term (current) use of insulin
CPT/HCPCS: 36415; 71045-TC; 75574; 80048-TC; 80061-TC; 80076-TC; 82962-TC; 83735-TC; 84100-TC; 84443-TC; 84484-TC; 85025-TC; 93307-TC; 97112-TC; 97116-TC; 97530-TC; G0378; J1815; J3490; J7050; Q9967

== ENCOUNTER 2024-03-18 11:52 | Emergency (ER) | payer MEDICARE, OTHER ==
[~2024-03-18] VITALS: Ht 165.1 cm; Wt 63.5 kg
[~2024-03-18 11:52] MED LIST changes: +ACET-868 PO; -ACET1TAB23 PO; +CALC1TAB30 PO; -CALC500T52 PO; -CARV25TA2 PO; -CEPH500C2 PO; +DICY10CA13 PO; +EMPA10TA PO; +HYDR12.55 PO; -ICOS1CAP PO; +LINA290C PO; -LOSA1TAB39 PO; -NAPR1TAB38 PO; -ONDA4TAB5 PO; +POLY15DR40 EACHEYE; +POTA8CAP20 PO
[2024-03-18] MEDS ORDERED: ACETAMINOPHEN ES 500 MG TABLET ONE (14:55)
[2024-03-18 14:57] VITALS: TEMP 98.7; O2SAT 97
[2024-03-18] MEDS: ACETAMINOPHEN ES 500 MG TABLET PO ONE (14:57)
== END 2024-03-18 14:57 | disposition home or self-care (01) ==
LOC: ER 12:07
DX: M79.671 Pain in right foot (principal); I10 Essential (primary) hypertension; E11.9 Type 2 diabetes mellitus without complications; Z98.890 Other specified postprocedural states; Z79.899 Other long term (current) drug therapy
CPT/HCPCS: 73610-TC; 73630-TC

== ENCOUNTER 2024-05-03 19:32 | Emergency (ER) | payer MEDICARE, OTHER ==
[~2024-05-03] VITALS: Ht 160 cm; Wt 63.5 kg
[2024-05-03] MEDS ORDERED: hydrALAZINE HCL IV 20 MG VIAL ONE (20:38)
[2024-05-03] MEDS ORDERED: ACETAMINOPHEN ES 500 MG TABLET ONE (20:43)
[2024-05-03] MEDS ORDERED: IBUPROFEN 600 MG TABLET ONE (20:44)
[2024-05-03] MEDS: IV NS 0.9% 1,000 ML BAG IV ONE (21:00)
[2024-05-03] MEDS: IBUPROFEN 600 MG TABLET PO ONE (21:00)
[2024-05-03] MEDS: ACETAMINOPHEN ES 500 MG TABLET PO ONE (21:00)
[2024-05-03] MEDS: hydrALAZINE HCL IV 20 MG VIAL IV ONE (21:10)
[2024-05-03 21:21] LABS: BASOPHILS % (AUTO) 0.8 % (0.0-2.0); EOSINOPHILS # (AUTO) 0.1 K/uL (0.0-0.7); EOSINOPHILS % (AUTO) 2.3 % (0.0-6.0); HEMATOCRIT 42 % (33-45); HEMOGLOBIN 14.4 g/dL (11.5-14.8); LYMPHOCYTES # (AUTO) 1.5 K/uL (0.8-4.8); MEAN CORPUSCULAR HEMOGLOBIN 30 PG (26.0-33.0); MEAN CORPUSCULAR HGB CONC 34 g/dl (31.0-36.0); MEAN CORPUSCULAR VOLUME 89 fL (82-100); MONOCYTES # (AUTO) 0.4 K/uL (0.1-1.30); MONOCYTES % (AUTO) 7.9 % (2.0-12.0); PLATELET COUNT (AUTO) 172 K/uL (150-450); RED BLOOD CELL COUNT(AUTO) 4.74 MIL/uL (4.0-5.2); RED CELL DISTRIBUTION WIDTH 13.6 % (11.5-15.0); WHITE BLOOD COUNT (AUTO) 5.1 K/uL (4.3-11.0)
[2024-05-03 21:39] LABS: CARBON DIOXIDE 26 mmol/L (21-32); CHLORIDE 95 mmol/L (98-107); CREATININE 0.8 mg/dL (0.6-1.3); POTASSIUM 3.9 mmol/L (3.5-5.1); SODIUM SERUM 134 mmol/L (136-145); UREA NITROGEN, BLOOD 18 mg/dL (7-18)
[2024-05-03 21:42] LABS: GLUCOSE 401 mg/dL (74-106)
[2024-05-03] MEDS ORDERED: MORPHINE SULFATE INJ 2 MG/ML DISP.SYRIN ONE (22:26)
[2024-05-03] MEDS: IV NS 0.9% 1,000 ML IV ONE (22:30)
[2024-05-03] MEDS: MORPHINE SULFATE INJ 2 MG/ML DISP.SYRIN IV ONE (22:30)
[2024-05-03] MEDS: INSULIN REGULAR, HUMAN 100 UNIT/ML 10 ML VIAL IV ONE (22:30)
[2024-05-04 02:31] VITALS: BP 111/86; TEMP 98.7; O2SAT 98
== END 2024-05-04 02:32 | disposition home or self-care (01) ==
LOC: ER 19:51
DX: E11.65 Type 2 diabetes mellitus with hyperglycemia (principal); R51.9 Headache, unspecified; I10 Essential (primary) hypertension; G89.29 Other chronic pain; M54.50 Low back pain, unspecified
CPT/HCPCS: 99285; 96374; 70450; 96361 ×2; 96375 ×2; 85025; 80048; 36415; 82962 ×3; J0360; J1815; J7030 ×2; J2270

== ENCOUNTER 2024-05-15 14:11 | Emergency (ER) | payer MEDICARE, OTHER ==
[~2024-05-15] VITALS: Ht 165.1 cm; Wt 75.3 kg
[2024-05-15] MEDS ORDERED: diphenhydrAMINE HCL 50 MG/ML VIAL IV ONE (15:00)
[2024-05-15] MEDS ORDERED: METOCLOPRAMIDE HCL 10 MG/2 ML VIAL IV ONE (15:00)
[2024-05-15] MEDS ORDERED: diphenhydrAMINE HCL 50 MG/ML VIAL ONE (15:06)
[2024-05-15] MEDS ORDERED: METOCLOPRAMIDE HCL 10 MG/2 ML VIAL ONE (15:06)
[2024-05-15] MEDS ORDERED: ACETAMINOPHEN ES 500 MG TABLET ONE (15:17)
[2024-05-15] MEDS: ACETAMINOPHEN 325 MG TABLET PO ONE (15:20)
[2024-05-15 15:29] LABS: BASOPHILS # (AUTO) 0.1 K/uL (0.0-0.2); BASOPHILS % (AUTO) 1.9 % (0.0-2.0); EOSINOPHILS # (AUTO) 0.1 K/uL (0.0-0.7); EOSINOPHILS % (AUTO) 2.2 % (0.0-6.0); HEMATOCRIT 43 % (33-45); HEMOGLOBIN 14.2 g/dL (11.5-14.8); MEAN CORPUSCULAR HEMOGLOBIN 29 PG (26.0-33.0); MEAN CORPUSCULAR HGB CONC 33 g/dl (31.0-36.0); MEAN CORPUSCULAR VOLUME 88 fL (82-100); MONOCYTES # (AUTO) 0.3 K/uL (0.1-1.30); MONOCYTES % (AUTO) 7.7 % (2.0-12.0); NEUTROPHILS # (AUTO) 2.7 K/uL (1.8-8.9); NEUTROPHILS % (AUTO) 64.2 % (43.0-81.0); PLATELET COUNT (AUTO) 184 K/uL (150-450); RED BLOOD CELL COUNT(AUTO) 4.83 MIL/uL (4.0-5.2); RED CELL DISTRIBUTION WIDTH 13.6 % (11.5-15.0); WHITE BLOOD COUNT (AUTO) 4.2 K/uL (4.3-11.0)
[2024-05-15] MEDS ORDERED: CLONIDINE HCL 0.1 MG TABLET ONE (15:38)
[2024-05-15] MEDS: IV NS 0.9% 1,000 ML BAG IV ONE (15:40)
[2024-05-15] MEDS: CLONIDINE HCL 0.1 MG TABLET PO ONE (15:41)
[2024-05-15 15:42] LABS: INR 1.02 (0.91-1.10); PARTIAL THROMBOPLASTIN TIME 25.4 SEC (24.3-34.3); PROTHROMBIN TIME 10.8 SECS (9.2-11.1)
[2024-05-15 15:47] LABS: ALANINE AMINOTRANSFERASE 16 U/L (12-78); ALKALINE PHOSPHATASE 113 U/L (46-116); ASPARTATE AMINOTRANSFERASE 9 U/L (15-37); BILIRUBIN,DIRECT 0.3 mg/dL (0.0-0.2); BILIRUBIN,TOTAL 0.9 mg/dL (0.2-1.0); CALCIUM, SERUM 9.2 mg/dL (8.5-10.1); CARBON DIOXIDE 29 mmol/L (21-32); CHLORIDE 101 mmol/L (98-107); CREATININE 0.7 mg/dL (0.6-1.3); GLUCOSE 347 mg/dL (74-106); POTASSIUM 3.9 mmol/L (3.5-5.1); SODIUM SERUM 137 mmol/L (136-145); TOTAL PROTEIN, SERUM 6.9 g/dL (6.4-8.2); UREA NITROGEN, BLOOD 9 mg/dL (7-18)
[2024-05-15] MEDS ORDERED: INSULIN REGULAR, HUMAN 100 UNIT/ML 10 ML VIAL ONE (17:45)
[2024-05-15] MEDS: INSULIN REGULAR, HUMAN 100 UNIT/ML 10 ML VIAL SQ ONE (17:49)
[2024-05-15 18:39] VITALS: BP 148/65; TEMP 98.4; O2SAT 97
== END 2024-05-15 18:40 | disposition home or self-care (01) ==
LOC: ER 14:27
DX: R51.9 Headache, unspecified (principal); I10 Essential (primary) hypertension; E11.65 Type 2 diabetes mellitus with hyperglycemia; R94.31 Abnormal electrocardiogram [ECG] [EKG]; G89.29 Other chronic pain; M54.50 Low back pain, unspecified; Z86.79 Personal history of other diseases of the circulatory system
CPT/HCPCS: 99284; 96360; 70450; 93005; 85025; 80048; 80076; 36415; 84484; 85730; 82962; J1815; J7030; J1200; J2765

== ENCOUNTER 2024-07-01 19:31 | Inpatient (IN) | payer MEDICARE, OTHER ==
[~2024-07-01] VITALS: Ht 157.5 cm; Wt 72.3 kg
[2024-07-01] MEDS: IV NS 0.9% 500 ML BAG IV ONE (20:30)
[2024-07-01 20:51] LABS: BASOPHILS # (AUTO) 0.1 K/uL (0.0-0.2); BASOPHILS % (AUTO) 1.3 % (0.0-2.0); EOSINOPHILS # (AUTO) 0.1 K/uL (0.0-0.7); EOSINOPHILS % (AUTO) 2.6 % (0.0-6.0); HEMATOCRIT 42 % (33-45); HEMOGLOBIN 14.2 g/dL (11.5-14.8); LYMPHOCYTES # (AUTO) 1.3 K/uL (0.8-4.8); LYMPHOCYTES % (AUTO) 25.3 % (20.0-44.0); MEAN CORPUSCULAR HEMOGLOBIN 30 PG (26.0-33.0); MEAN CORPUSCULAR HGB CONC 34 g/dl (31.0-36.0); MEAN CORPUSCULAR VOLUME 89 fL (82-100); MONOCYTES # (AUTO) 0.4 K/uL (0.1-1.30); MONOCYTES % (AUTO) 7.4 % (2.0-12.0); NEUTROPHILS # (AUTO) 3.4 K/uL (1.8-8.9); NEUTROPHILS % (AUTO) 63.4 % (43.0-81.0); PLATELET COUNT (AUTO) 202 K/uL (150-450); RED BLOOD CELL COUNT(AUTO) 4.74 MIL/uL (4.0-5.2); WHITE BLOOD COUNT (AUTO) 5.3 K/uL (4.3-11.0)
[2024-07-01 21:01] LABS: CALCIUM, SERUM 9.5 mg/dL (8.5-10.1); CARBON DIOXIDE 25 mmol/L (21-32); CHLORIDE 106 mmol/L (98-107); CREATININE 0.8 mg/dL (0.6-1.3); POTASSIUM 3.5 mmol/L (3.5-5.1); SODIUM SERUM 139 mmol/L (136-145); UREA NITROGEN, BLOOD 27 mg/dL (7-18)
[2024-07-01 21:07] LABS: ALANINE AMINOTRANSFERASE 33 U/L (12-78); ALBUMIN 3.6 g/dL (3.4-5.0); ALKALINE PHOSPHATASE 118 U/L (46-116); ASPARTATE AMINOTRANSFERASE 22 U/L (15-37); BILIRUBIN,DIRECT 0.2 mg/dL (0.0-0.2); BILIRUBIN,TOTAL 0.8 mg/dL (0.2-1.0); TOTAL PROTEIN, SERUM 6.8 g/dL (6.4-8.2)
[2024-07-01 21:24] LABS: GLUCOSE 218 mg/dL (74-106)
[2024-07-01 21:26] LABS: ALCOHOL, BLOOD < 3 mg/dL (0-10)
[2024-07-01] MEDS ORDERED: Z GUARD REMEDY 4 OZ OINT TP PRN (22:30)
[2024-07-01] MEDS ORDERED: INSULIN REGULAR, HUMAN 100 UNIT/ML 10 ML VIAL SQ SCH (22:30)
[2024-07-01] MEDS ORDERED: ONDANSETRON HCL/PF 4 MG/2 ML VIAL IVP PRN (22:30)
[2024-07-01 23:30] VITALS: BP 135/63; TEMP 97.9; O2SAT 96
[2024-07-01] MEDS: BLOOD SUGAR DIAGNOSTIC 1 EACH STRIP IN SCH (23:50)
[2024-07-02] VITALS (7 sets, daily range): BP systolic 96–152; BP diastolic 53–70; TEMP 97.3–97.9; O2SAT 94–99
[2024-07-02] MEDS ORDERED: BLOOD SUGAR DIAGNOSTIC 1 EACH STRIP IN SCH
[2024-07-02] MEDS ORDERED: DEXTROSE 50%-WATER 50 ML DISP.SYRIN IV PRN
[2024-07-02] MEDS: INSULIN REGULAR, HUMAN 100 UNIT/ML 3 ML VIAL SQ PRN (00:30)
[2024-07-02] MEDS: ACETAMINOPHEN 325 MG TABLET PO PRN (02:11)
[2024-07-02 06:55] LABS: BASOPHILS # (AUTO) 0.1 K/uL (0.0-0.2); BASOPHILS % (AUTO) 1.1 % (0.0-2.0); EOSINOPHILS # (AUTO) 0.1 K/uL (0.0-0.7); EOSINOPHILS % (AUTO) 1.6 % (0.0-6.0); HEMATOCRIT 39 % (33-45); LYMPHOCYTES # (AUTO) 1.9 K/uL (0.8-4.8); LYMPHOCYTES % (AUTO) 26.3 % (20.0-44.0); MEAN CORPUSCULAR HEMOGLOBIN 30 PG (26.0-33.0); MEAN CORPUSCULAR HGB CONC 33 g/dl (31.0-36.0); MEAN CORPUSCULAR VOLUME 89 fL (82-100); MONOCYTES # (AUTO) 0.6 K/uL (0.1-1.30); MONOCYTES % (AUTO) 8.2 % (2.0-12.0); NEUTROPHILS # (AUTO) 4.5 K/uL (1.8-8.9); NEUTROPHILS % (AUTO) 62.8 % (43.0-81.0); PLATELET COUNT (AUTO) 193 K/uL (150-450); RED BLOOD CELL COUNT(AUTO) 4.42 MIL/uL (4.0-5.2); RED CELL DISTRIBUTION WIDTH 13.7 % (11.5-15.0); WHITE BLOOD COUNT (AUTO) 7.2 K/uL (4.3-11.0)
[2024-07-02 07:21] LABS: ALANINE AMINOTRANSFERASE 27 U/L (12-78); ALBUMIN 3.2 g/dL (3.4-5.0); ALKALINE PHOSPHATASE 126 U/L (46-116); ASPARTATE AMINOTRANSFERASE 14 U/L (15-37); BILIRUBIN,DIRECT 0.3 mg/dL (0.0-0.2); BILIRUBIN,TOTAL 0.9 mg/dL (0.2-1.0); CARBON DIOXIDE 30 mmol/L (21-32); CHLORIDE 104 mmol/L (98-107); CREATININE 0.6 mg/dL (0.6-1.3); GLUCOSE 237 mg/dL (74-106); MAGNESIUM 1.4 mg/dL (1.8-2.4); PHOSPHORUS 3.2 mg/dL (2.5-4.9); POTASSIUM 3.3 mmol/L (3.5-5.1); SODIUM SERUM 139 mmol/L (136-145); TOTAL PROTEIN, SERUM 6.4 g/dL (6.4-8.2); UREA NITROGEN, BLOOD 26 mg/dL (7-18)
[2024-07-02] MEDS: PANTOPRAZOLE 40 MG TABLET.DR PO SCH (07:54)
[2024-07-02 07:59] LABS: ADD URINE CULTURE YES; APPEARANCE,URINE TURBID (CLEAR); BACTERIA,URINE Moderate /HPF (None Seen); BILIRUBIN,URINE NEGATIVE (NEGATIVE); BLOOD, URINE TRACE-INTA Ery/uL (NEGATIVE); COLOR,URINE DARK YELLOW (YELLOW); KETONES,URINE TRACE mg/dL (NEGATIVE); LEUKOCYTE ESTERASE ,URINE 1+ (NEGATIVE); NITRITE, URINE POSITIVE (NEGATIVE); PH,URINE 5.5 (5.0-8.0); PROTEIN,URINE TRACE mg/dl (NEGATIVE); SQUAMOUS EPITHELIAL CELL,UR Rare /HPF (None Seen); UGLUCOSE 2+ mg/dL (NEGATIVE)
[2024-07-02 08:02] LABS: AMPHETAMINE, URINE NEGATIVE (NEGATIVE); BARBITURATE, URINE NEGATIVE (NEGATIVE); BENZODIAZEPINE, URINE NEGATIVE (NEGATIVE); CANNABINOID, URINE NEGATIVE (NEGATIVE); COCCAINE, URINE NEGATIVE (NEGATIVE); OPIATE, URINE NEGATIVE (NEGATIVE); PHENCYCLIDINE SCREEN,URINE NEGATIVE (NEGATIVE)
[2024-07-02 08:16] LABS: CHOLESTEROL 161 mg/dL (<200); HDL CHOLESTEROL 54 mg/dL (40-60); LDL 83 mg/dL (0-99); TRIGLYCERIDES 118 mg/dL (30-150)
[2024-07-02] MEDS: POTASSIUM CHLORIDE 20 MEQ TAB.PRT.SR PO SCH (10:58)
[2024-07-02] MEDS: MAGNESIUM OXIDE 400 MG TABLET PO ONE (10:58)
[2024-07-02] MEDS: Magnesium 1GM/D5W 100ML PREMIX 100 ML IV SCH (10:58)
[2024-07-02] MEDS: EMPAGLIFLOZIN 10 MG TABLET PO SCH (11:02)
[2024-07-02] MEDS: LIDOCAINE 5% (PATCH) 1 EA PATCH TP SCH (11:02)
[2024-07-02] MEDS: MEMANTINE HCL 5 MG TABLET PO SCH (11:02)
[2024-07-02] MEDS: APIXABAN 2.5 MG TABLET PO SCH (11:03)
[2024-07-02 11:48] LABS: THYROID STIMULATING HORMONE 0.57 uIU/mL (0.358-3.74)
[2024-07-02] MEDS: IV NS 0.9% 1,000 ML IV PRN (11:51)
[2024-07-02] MEDS ORDERED: CALC500T53 PO (12:13)
[2024-07-02] MEDS ORDERED: INSU100I4 SQ (12:13)
[2024-07-02] MEDS ORDERED: AMLO10TA4 PO (12:13)
[2024-07-02] MEDS ORDERED: NYST15CR15 TP (12:13)
[2024-07-02] MEDS ORDERED: PROP15DR EACHEYE (12:13)
[2024-07-02] MEDS ORDERED: EMPA25TA PO (12:13)
[2024-07-02] MEDS ORDERED: NAPR1TAB38 PO (12:13)
[2024-07-02] MEDS ORDERED: LOSA1TAB36 PO (12:13)
[2024-07-02] MEDS ORDERED: INSU100V7 SQ (12:13)
[2024-07-02] MEDS ORDERED: CARV6.25 PO (12:13)
[2024-07-02] MEDS ORDERED: MAGN400T30 PO (12:33)
[2024-07-02] MEDS ORDERED: ALENDRONATE 70 MG TABLET PO SCH (16:00)
[2024-07-02] MEDS ORDERED: ERGOCALCIFEROL (VITAMIN D 2) 50,000 UNIT CAPSULE PO SCH (16:00)
[2024-07-02] MEDS ORDERED: DICYCLOMINE HCL 10 MG CAPSULE PO PRN (16:00)
[2024-07-02] MEDS ORDERED: DICLOFENAC TOPICAL 100 GM TUBE TP PRN (16:00)
[2024-07-02] MEDS ORDERED: [UNRECOGNIZED DRUG - OTHER] PO SCH (17:00)
[2024-07-02] MEDS ORDERED: NAPROXEN PO SCH (17:00)
[2024-07-02] MEDS ORDERED: ESOMEPRAZOLE PO SCH (17:00)
[2024-07-02] MEDS: POLYVINYL ALCOHOL 15 ML BOTTLE EACHEYE SCH (18:23)
[2024-07-02] MEDS: CARVEDILOL 6.25 MG TABLET PO SCH (18:23)
[2024-07-02] MEDS: ATORVASTATIN 40 MG TABLET PO SCH (18:23)
[2024-07-02] MEDS: METFORMIN 500 MG TABLET PO SCH (18:24)
[2024-07-02] MEDS: NYSTATIN/TRIAMCIN 15 GM CREAM 15 GM TUBE TP SCH (18:24)
[2024-07-02] MEDS: INSULIN ASPART/LISPRO 100 UNIT/ML CARTRIDGE SQ SCH (18:27)
[2024-07-02] MEDS: INSULIN GLARGINE, 100 UNIT/ML CARTRIDGE SQ SCH (21:21)
[2024-07-02] MEDS: MIRTAZAPINE 15 MG TABLET PO SCH (21:26)
[2024-07-03] VITALS (7 sets, daily range): BP systolic 97–156; BP diastolic 64–84; TEMP 97.3–98.2; O2SAT 93–100
[2024-07-03] MEDS: AMLODIPINE BESYLATE 10 MG TABLET PO SCH (08:46)
[2024-07-03] MEDS: busPIRone 5 MG TABLET PO SCH (08:46)
[2024-07-03] MEDS: EMPAGLIFLOZIN 25 MG TABLET PO SCH (08:47)
[2024-07-03] MEDS: MAGNESIUM OXIDE 400 MG TABLET PO SCH (08:47)
[2024-07-03] MEDS: CALCIUM CARBONATE (1250) 500 MG TABLET PO SCH (08:47)
[2024-07-03] MEDS: FERROUS SULFATE (325 MG) 325 MG/TAB TABLET PO SCH (08:47)
[2024-07-03] MEDS: LOSARTAN/HCTZ 50-12.5MG/ 1 EA TABLET PO SCH (08:50)
[2024-07-03 10:08] LABS: FOLIC ACID 16.9 ng/mL (>3.0)
[2024-07-03] MEDS ORDERED: ASPI-1169 PO (15:18)
[2024-07-03] MEDS ORDERED: LORAZEPAM 0.5 MG TABLET PO ONE (17:00)
[2024-07-04] VITALS: BP 150/82; TEMP 97.9; O2SAT 100
[2024-07-04 04:00] VITALS: BP 150/82; TEMP 97.9; O2SAT 100
[2024-07-04 08:00] VITALS: BP 150/87; TEMP 97.9; O2SAT 100
[2024-07-04] MEDS ORDERED: LORAZEPAM 0.5 MG TABLET PO PRN (10:00)
[2024-07-04 12:00] VITALS: TEMP 98
[2024-07-04] MEDS: ACETAMINOPHEN 325 MG TABLET PO PRN (13:31)
[2024-07-04] MEDS ORDERED: CIPR500S2 PO (14:58)
[2024-07-04 16:00] VITALS: BP 112/55; TEMP 97.9; O2SAT 97
[2024-07-05] MEDS ORDERED: ASPIRIN 81 MG TAB.CHEW PO SCH (09:00)
== END 2024-07-04 17:00 | DRG 640 ==
LOC: ER 19:32 → TELE1 21:58 → MEDSG1 07-04 08:54
PROVIDERS: ADMIT Nurse Practitioner Family; ATTEND Student in an Organized Health Care Education/Training Program
DX: E86.0 Dehydration (principal); G93.41 Metabolic encephalopathy; N39.0 Urinary tract infection, site not specified; R55 Syncope and collapse; E11.9 Type 2 diabetes mellitus without complications; I11.0 Hypertensive heart disease with heart failure; E66.3 Overweight; E78.5 Hyperlipidemia, unspecified; M47.812 Spondylosis without myelopathy or radiculopathy, cervical region; I25.10 Atherosclerotic heart disease of native coronary artery without angina pectoris; Z79.01 Long term (current) use of anticoagulants; Z79.4 Long term (current) use of insulin; Z79.84 Long term (current) use of oral hypoglycemic drugs; I65.22 Occlusion and stenosis of left carotid artery; I50.9 Heart failure, unspecified; F03.90 Unspecified dementia, unspecified severity, without behavioral disturbance, psychotic disturbance, mood disturbance, and anxiety; B96.89 Other specified bacterial agents as the cause of diseases classified elsewhere
CPT/HCPCS: 36415; 70450-TC; 71045-TC; 72125-TC; 80048-TC; 80061-TC; 80076-TC; 81001; 82607-TC; 82728-TC; 82962-TC; 83540-TC; 83690-TC; 83735-TC; 83921; 84100-TC; 84425; 84439-TC; 84443-TC; 84484-TC; 85025-TC; 87086-TC; 93307-TC; 93880-TC; 97110-TC; 97116-TC; 97530-TC; A4223; G0378; G0480; J1815; J3475; J3490

== ENCOUNTER 2024-07-28 21:55 | Inpatient (IN) | payer MEDICARE, OTHER ==
[~2024-07-28] VITALS: Ht 162.6 cm; Wt 61.7 kg
[~2024-07-28 21:55] MED LIST changes: +AMLO10TA4 PO; -APIX2.5T PO; +ASPI-1169 PO; -CALC1TAB30 PO; +CALC500T53 PO; +CARV6.25 PO; +CIPR500S2 PO; -CYAN500T9 PO; -DULA1.5P SQ; -EMPA10TA PO; +EMPA25TA PO; -ESTR42.511 VG; -HYDR12.55 PO; +INSU100I4 SQ; -LINA290C PO; -LORA-258 PO; +LOSA1TAB36 PO; +MAGN400T30 PO; +NAPR1TAB38 PO; +NYST15CR15 TP; -POLY15DR40 EACHEYE; -POTA8CAP20 PO; +PROP15DR EACHEYE
[2024-07-28 22:42] LABS: BASOPHILS % (AUTO) 0.7 % (0.0-2.0); EOSINOPHILS # (AUTO) 0.1 K/uL (0.0-0.7); HEMATOCRIT 39 % (33-45); HEMOGLOBIN 13.2 g/dL (11.5-14.8); LYMPHOCYTES # (AUTO) 0.8 K/uL (0.8-4.8); LYMPHOCYTES % (AUTO) 11.5 % (20.0-44.0); MEAN CORPUSCULAR HEMOGLOBIN 30 PG (26.0-33.0); MEAN CORPUSCULAR HGB CONC 34 g/dl (31.0-36.0); MEAN CORPUSCULAR VOLUME 89 fL (82-100); MONOCYTES # (AUTO) 0.4 K/uL (0.1-1.30); MONOCYTES % (AUTO) 5.4 % (2.0-12.0); NEUTROPHILS # (AUTO) 5.9 K/uL (1.8-8.9); NEUTROPHILS % (AUTO) 81.4 % (43.0-81.0); PLATELET COUNT (AUTO) 194 K/uL (150-450); RED BLOOD CELL COUNT(AUTO) 4.36 MIL/uL (4.0-5.2); RED CELL DISTRIBUTION WIDTH 14.8 % (11.5-15.0); WHITE BLOOD COUNT (AUTO) 7.3 K/uL (4.3-11.0)
[2024-07-28 22:50] LABS: CALCIUM, SERUM 9.4 mg/dL (8.5-10.1); CARBON DIOXIDE 26 mmol/L (21-32); CHLORIDE 107 mmol/L (98-107); CREATININE 0.9 mg/dL (0.6-1.3); GLUCOSE 261 mg/dL (74-106); POTASSIUM 3.8 mmol/L (3.5-5.1); SODIUM SERUM 143 mmol/L (136-145); UREA NITROGEN, BLOOD 18 mg/dL (7-18)
[2024-07-28] MEDS ORDERED: PROPOFOL 20 ML IV ONE (22:51)
[2024-07-28 22:56] LABS: PARTIAL THROMBOPLASTIN TIME 22.5 SEC (24.3-34.3); PROTHROMBIN TIME 10.6 SECS (9.2-11.1)
[2024-07-28] MEDS: PROPOFOL 200 MG/20 ML VIAL IV ONE (23:02)
[2024-07-29] MEDS ORDERED: ONDANSETRON HCL/PF 4 MG/2 ML VIAL IVP PRN
[2024-07-29] MEDS ORDERED: Z GUARD REMEDY 4 OZ OINT TP PRN
[2024-07-29] MEDS ORDERED: MAG HYDROX/AL HYDROX/SIMETH 30 ML UDC PO PRN
[2024-07-29] MEDS ORDERED: MAGNESIUM HYDROXIDE 30 ML UDC PO PRN
[2024-07-29] MEDS: ENOXAPARIN SODIUM 40 MG/0.4 ML DISP.SYRIN SQ SCH (01:13)
[2024-07-29] MEDS: BLOOD SUGAR DIAGNOSTIC 1 EACH STRIP IN SCH ×2 (06:03→07:35)
[2024-07-29] MEDS: INSULIN REGULAR, HUMAN 100 UNIT/ML 3 ML VIAL SQ PRN (06:15)
[2024-07-29] MEDS ORDERED: DEXTROSE 50%-WATER 50 ML DISP.SYRIN IV PRN (06:30)
[2024-07-29 07:03] LABS: BASOPHILS % (AUTO) 0.6 % (0.0-2.0); EOSINOPHILS # (AUTO) 0.1 K/uL (0.0-0.7); EOSINOPHILS % (AUTO) 1.4 % (0.0-6.0); HEMATOCRIT 36 % (33-45); LYMPHOCYTES # (AUTO) 1.4 K/uL (0.8-4.8); LYMPHOCYTES % (AUTO) 27.4 % (20.0-44.0); MEAN CORPUSCULAR HEMOGLOBIN 30 PG (26.0-33.0); MEAN CORPUSCULAR HGB CONC 34 g/dl (31.0-36.0); MEAN CORPUSCULAR VOLUME 88 fL (82-100); MONOCYTES # (AUTO) 0.5 K/uL (0.1-1.30); MONOCYTES % (AUTO) 9.1 % (2.0-12.0); NEUTROPHILS # (AUTO) 3.2 K/uL (1.8-8.9); NEUTROPHILS % (AUTO) 61.5 % (43.0-81.0); PLATELET COUNT (AUTO) 159 K/uL (150-450); RED BLOOD CELL COUNT(AUTO) 4.04 MIL/uL (4.0-5.2); RED CELL DISTRIBUTION WIDTH 14.5 % (11.5-15.0); WHITE BLOOD COUNT (AUTO) 5.2 K/uL (4.3-11.0)
[2024-07-29 07:08] LABS: CHOLESTEROL 161 mg/dL (<200); HDL CHOLESTEROL 53 mg/dL (40-60); LDL 91 mg/dL (0-99); TRIGLYCERIDES 121 mg/dL (30-150)
[2024-07-29] MEDS ORDERED: INSULIN REGULAR, HUMAN 100 UNIT/ML 3 ML VIAL SQ SCH (07:30)
[2024-07-29] MEDS: PANTOPRAZOLE 40 MG TABLET.DR PO SCH (07:40)
[2024-07-29 07:51] LABS: CALCIUM, SERUM 9.2 mg/dL (8.5-10.1); CARBON DIOXIDE 23 mmol/L (21-32); CHLORIDE 108 mmol/L (98-107); CREATININE 0.5 mg/dL (0.6-1.3); GLUCOSE 317 mg/dL (74-106); MAGNESIUM 1.6 mg/dL (1.8-2.4); PHOSPHORUS 3.1 mg/dL (2.5-4.9); POTASSIUM 3.4 mmol/L (3.5-5.1); SODIUM SERUM 143 mmol/L (136-145); UREA NITROGEN, BLOOD 15 mg/dL (7-18)
[2024-07-29 08:00] VITALS: BP 149/68; TEMP 97.9; O2SAT 99
[2024-07-29] MEDS: MAGNESIUM OXIDE 400 MG TABLET PO ONE (09:59)
[2024-07-29] MEDS: POTASSIUM CHLORIDE 20 MEQ TAB.PRT.SR PO SCH (09:59)
[2024-07-29] MEDS: INSULIN ASPART/LISPRO 100 UNIT/ML CARTRIDGE SQ SCH (14:18)
[2024-07-29] MEDS: MEMANTINE HCL 5 MG TABLET PO SCH (17:20)
[2024-07-29] MEDS: CARVEDILOL 6.25 MG TABLET PO SCH (17:20)
[2024-07-29] MEDS: ATORVASTATIN 10 MG TABLET PO SCH (17:20)
[2024-07-29 20:00] VITALS: BP 133/65; TEMP 98.2; O2SAT 95
[2024-07-29 20:39] VITALS: BP 133/65; TEMP 98.2; O2SAT 95
[2024-07-29] MEDS: MIRTAZAPINE 15 MG TABLET PO SCH (21:26)
[2024-07-29] MEDS: INSULIN GLARGINE, 100 UNIT/ML CARTRIDGE SQ SCH (21:46)
[2024-07-30 07:23] LABS: CALCIUM, SERUM 8.2 mg/dL (8.5-10.1); CARBON DIOXIDE 27 mmol/L (21-32); CHLORIDE 103 mmol/L (98-107); CREATININE 0.5 mg/dL (0.6-1.3); GLUCOSE 246 mg/dL (74-106); MAGNESIUM 1.4 mg/dL (1.8-2.4); POTASSIUM 3.4 mmol/L (3.5-5.1); SODIUM SERUM 137 mmol/L (136-145); UREA NITROGEN, BLOOD 11 mg/dL (7-18)
[2024-07-30 08:00] VITALS: BP 164/66; TEMP 99.1; O2SAT 94
[2024-07-30] MEDS: INSULIN GLARGINE, 100 UNIT/ML CARTRIDGE SQ SCH (08:30)
[2024-07-30] MEDS: busPIRone 5 MG TABLET PO SCH (08:39)
[2024-07-30] MEDS: ASPIRIN 81 MG TAB.CHEW PO SCH (08:39)
[2024-07-30] MEDS: LOSARTAN/HCTZ 50-12.5MG/ 1 EA TABLET PO SCH (08:40)
[2024-07-30] MEDS: AMLODIPINE BESYLATE 10 MG TABLET PO SCH (08:40)
[2024-07-30] MEDS: POTASSIUM CHLORIDE 20 MEQ TAB.PRT.SR PO SCH (10:06)
[2024-07-30] MEDS: MAGNESIUM OXIDE 400 MG TABLET PO SCH (10:06)
[2024-07-30 16:00] VITALS: BP 142/68; TEMP 100; O2SAT 94
[2024-07-30] MEDS: ACETAMINOPHEN 325 MG TABLET PO PRN (16:45)
[2024-07-30 20:00] VITALS: BP 116/62; TEMP 98.1; O2SAT 95
[2024-07-31 07:15] LABS: CALCIUM, SERUM 9.4 mg/dL (8.5-10.1); CARBON DIOXIDE 35 mmol/L (21-32); CHLORIDE 101 mmol/L (98-107); CREATININE 0.5 mg/dL (0.6-1.3); GLUCOSE 209 mg/dL (74-106); MAGNESIUM 1.5 mg/dL (1.8-2.4); POTASSIUM 3.2 mmol/L (3.5-5.1); SODIUM SERUM 138 mmol/L (136-145); UREA NITROGEN, BLOOD 16 mg/dL (7-18)
[2024-07-31 08:00] VITALS: BP 137/61; TEMP 98.6; O2SAT 93
[2024-07-31] MEDS: CHOLECALCIFEROL (VITAMIN D 3) 400 UNIT TABLET PO SCH (08:45)
[2024-07-31] MEDS ORDERED: CHOLECALCIFEROL 1,000 UNIT TABLET (VIT D3) PO SCH (09:00)
[2024-07-31] MEDS: MAGNESIUM OXIDE 400 MG TABLET PO ONE (09:38)
[2024-07-31] MEDS: POTASSIUM CHLORIDE 20 MEQ TAB.PRT.SR PO SCH (09:38)
[2024-07-31] MEDS ORDERED: CEFTRIAXONE 1 G VIAL IM SCH ×2 (15:30→16:00)
[2024-07-31 16:00] LABS: APPEARANCE,URINE TURBID (CLEAR); BILIRUBIN,URINE NEGATIVE (NEGATIVE); BLOOD, URINE 3+ Ery/uL (NEGATIVE); COLOR,URINE YELLOW (YELLOW); KETONES,URINE TRACE mg/dL (NEGATIVE); LEUKOCYTE ESTERASE ,URINE 2+ (NEGATIVE); NITRITE, URINE NEGATIVE (NEGATIVE); PH,URINE 5.5 (5.0-8.0); PROTEIN,URINE 2+ mg/dl (NEGATIVE); UGLUCOSE 3+ mg/dL (NEGATIVE); UROBILINOGEN,URINE 0.2 EU/dL (0.2)
[2024-07-31 16:05] VITALS: BP 114/78; TEMP 99; O2SAT 94
[2024-07-31] MEDS: CEFTRIAXONE 1 G in IV D5W 50 ML IV SCH (16:24)
[2024-07-31 16:31] LABS: ADD URINE CULTURE YES; BACTERIA,URINE Many /HPF (None Seen); WBC,URINE 51-80 /HPF (0-3); YEAST,URINE Moderate /HPF (None Seen)
[2024-07-31 20:59] VITALS: BP 122/71; TEMP 98.2; O2SAT 93
[2024-08-01 06:11] VITALS: BP 135/79; TEMP 98.3; O2SAT 95
[2024-08-01 06:12] VITALS: BP 121/87
[2024-08-01 06:30] LABS: BASOPHILS % (AUTO) 0.7 % (0.0-2.0); EOSINOPHILS # (AUTO) 0.1 K/uL (0.0-0.7); EOSINOPHILS % (AUTO) 3.9 % (0.0-6.0); HEMATOCRIT 37 % (33-45); HEMOGLOBIN 12.7 g/dL (11.5-14.8); LYMPHOCYTES # (AUTO) 1.1 K/uL (0.8-4.8); LYMPHOCYTES % (AUTO) 28.9 % (20.0-44.0); MEAN CORPUSCULAR HEMOGLOBIN 30 PG (26.0-33.0); MEAN CORPUSCULAR HGB CONC 34 g/dl (31.0-36.0); MEAN CORPUSCULAR VOLUME 87 fL (82-100); MONOCYTES # (AUTO) 0.6 K/uL (0.1-1.30); NEUTROPHILS # (AUTO) 1.9 K/uL (1.8-8.9); NEUTROPHILS % (AUTO) 50.5 % (43.0-81.0); PLATELET COUNT (AUTO) 201 K/uL (150-450); RED BLOOD CELL COUNT(AUTO) 4.28 MIL/uL (4.0-5.2); RED CELL DISTRIBUTION WIDTH 14.4 % (11.5-15.0); WHITE BLOOD COUNT (AUTO) 3.7 K/uL (4.3-11.0)
[2024-08-01 06:43] LABS: INR 1.01 (0.91-1.10); PROTHROMBIN TIME 10.7 SECS (9.2-11.1)
[2024-08-01 06:49] LABS: ALANINE AMINOTRANSFERASE 32 U/L (12-78); ALBUMIN 2.7 g/dL (3.4-5.0); ALKALINE PHOSPHATASE 261 U/L (46-116); ASPARTATE AMINOTRANSFERASE 21 U/L (15-37); BILIRUBIN,TOTAL 0.9 mg/dL (0.2-1.0); CALCIUM, SERUM 9.4 mg/dL (8.5-10.1); CARBON DIOXIDE 36 mmol/L (21-32); CHLORIDE 101 mmol/L (98-107); CREATININE 0.7 mg/dL (0.6-1.3); GLUCOSE 229 mg/dL (74-106); POTASSIUM 3.6 mmol/L (3.5-5.1); SODIUM SERUM 142 mmol/L (136-145); TOTAL PROTEIN, SERUM 6.7 g/dL (6.4-8.2); UREA NITROGEN, BLOOD 17 mg/dL (7-18)
[2024-08-01 07:00] VITALS: BP 129/70; TEMP 98.6; O2SAT 94
[2024-08-01] MEDS: MAGNESIUM OXIDE 400 MG TABLET PO ONE (11:45)
[2024-08-01] MEDS: INSULIN GLARGINE, 100 UNIT/ML CARTRIDGE SQ SCH (17:42)
[2024-08-01 21:01] VITALS: BP 127/69; TEMP 98.1; O2SAT 94
[2024-08-02] MEDS: MORPHINE SULFATE INJ 2 MG/ML DISP.SYRIN IV ONE (00:39)
[2024-08-02 07:00] VITALS: BP 126/72; TEMP 98.4; O2SAT 93
[2024-08-02] MEDS ORDERED: BUPIVACAINE 0.25% 75 MG/30 ML VIAL ONE (08:33)
[2024-08-02] MEDS ORDERED: VANCOMYCIN 1 GM VIAL ONE (08:34)
[2024-08-02 09:23] LABS: CALCIUM, SERUM 9.4 mg/dL (8.5-10.1); CARBON DIOXIDE 29 mmol/L (21-32); CHLORIDE 98 mmol/L (98-107); CREATININE 0.6 mg/dL (0.6-1.3); GLUCOSE 292 mg/dL (74-106); MAGNESIUM 1.7 mg/dL (1.8-2.4); SODIUM SERUM 138 mmol/L (136-145); UREA NITROGEN, BLOOD 25 mg/dL (7-18)
[2024-08-02] MEDS: BLOOD SUGAR DIAGNOSTIC 1 EACH STRIP IN SCH (15:30)
[2024-08-02] MEDS ORDERED: DEXTROSE 50%-WATER 50 ML DISP.SYRIN IV PRN (15:30)
[2024-08-02 16:00] VITALS: BP 126/72; TEMP 98.2; O2SAT 92
[2024-08-02] MEDS: INSULIN GLARGINE, 100 UNIT/ML CARTRIDGE SQ SCH (17:16)
[2024-08-02] MEDS: INSULIN REGULAR, HUMAN 100 UNIT/ML 3 ML VIAL SQ PRN (17:18)
[2024-08-02] MEDS: MAGNESIUM OXIDE 400 MG TABLET PO ONE (19:15)
[2024-08-02 20:00] VITALS: BP 115/53; TEMP 98.1; O2SAT 95
[2024-08-02] MEDS: *INSULIN REGULAR(HUMULIN R)HUM 100 UNIT/ML VIAL SQ PRN (22:34)
[2024-08-03 05:07] VITALS: BP 102/56; O2SAT 95
[2024-08-03 05:44] LABS: BASOPHILS % (AUTO) 0.5 % (0.0-2.0); EOSINOPHILS % (AUTO) 0.2 % (0.0-6.0); HEMATOCRIT 41 % (33-45); HEMOGLOBIN 13.5 g/dL (11.5-14.8); LYMPHOCYTES # (AUTO) 1.2 K/uL (0.8-4.8); LYMPHOCYTES % (AUTO) 19.7 % (20.0-44.0); MEAN CORPUSCULAR HEMOGLOBIN 30 PG (26.0-33.0); MEAN CORPUSCULAR HGB CONC 33 g/dl (31.0-36.0); MEAN CORPUSCULAR VOLUME 89 fL (82-100); MONOCYTES # (AUTO) 0.9 K/uL (0.1-1.30); MONOCYTES % (AUTO) 14.5 % (2.0-12.0); NEUTROPHILS # (AUTO) 4.1 K/uL (1.8-8.9); NEUTROPHILS % (AUTO) 65.1 % (43.0-81.0); PLATELET COUNT (AUTO) 252 K/uL (150-450); RED BLOOD CELL COUNT(AUTO) 4.58 MIL/uL (4.0-5.2); RED CELL DISTRIBUTION WIDTH 14.5 % (11.5-15.0); WHITE BLOOD COUNT (AUTO) 6.2 K/uL (4.3-11.0)
[2024-08-03 05:58] LABS: CALCIUM, SERUM 9.4 mg/dL (8.5-10.1); CARBON DIOXIDE 28 mmol/L (21-32); CHLORIDE 98 mmol/L (98-107); CREATININE 0.8 mg/dL (0.6-1.3); GLUCOSE 231 mg/dL (74-106); MAGNESIUM 1.9 mg/dL (1.8-2.4); PHOSPHORUS 4.3 mg/dL (2.5-4.9); POTASSIUM 3.6 mmol/L (3.5-5.1); SODIUM SERUM 138 mmol/L (136-145); UREA NITROGEN, BLOOD 32 mg/dL (7-18)
[2024-08-03] MEDS: INSULIN GLARGINE, 100 UNIT/ML CARTRIDGE SQ SCH (12:19)
[2024-08-03 20:01] VITALS: BP 102/71; TEMP 98.2; O2SAT 96
[2024-08-04 06:12] LABS: CALCIUM, SERUM 9.2 mg/dL (8.5-10.1); CARBON DIOXIDE 27 mmol/L (21-32); CHLORIDE 100 mmol/L (98-107); CREATININE 0.8 mg/dL (0.6-1.3); GLUCOSE 78 mg/dL (74-106); POTASSIUM 3.5 mmol/L (3.5-5.1); SODIUM SERUM 139 mmol/L (136-145); UREA NITROGEN, BLOOD 44 mg/dL (7-18)
[2024-08-04 08:00] VITALS: BP 135/66; TEMP 98.4; O2SAT 95
[2024-08-04] MEDS: ERGOCALCIFEROL (VITAMIN D 2) 50,000 UNIT CAPSULE PO SCH (08:19)
[2024-08-04 16:00] VITALS: BP 114/55; TEMP 98.2; O2SAT 94
[2024-08-04] MEDS: INSULIN GLARGINE, 100 UNIT/ML CARTRIDGE SQ SCH (16:53)
[2024-08-05] MEDS: INSULIN LISPRO/ASPART 100 UNIT/ML CARTRIDGE SQ SCH (09:43)
[2024-08-05 11:48] LABS: INR 1.02 (0.91-1.10); PROTHROMBIN TIME 10.8 SECS (9.2-11.1)
[2024-08-05 16:00] VITALS: BP 110/61; TEMP 98.6; O2SAT 98
[2024-08-05 20:00] VITALS: BP 100/60; TEMP 97.7; O2SAT 97
[2024-08-06 06:31] LABS: BASOPHILS # (AUTO) 0.1 K/uL (0.0-0.2); EOSINOPHILS # (AUTO) 0.2 K/uL (0.0-0.7); EOSINOPHILS % (AUTO) 3.8 % (0.0-6.0); HEMATOCRIT 40 % (33-45); LYMPHOCYTES # (AUTO) 1.3 K/uL (0.8-4.8); LYMPHOCYTES % (AUTO) 24.2 % (20.0-44.0); MEAN CORPUSCULAR HEMOGLOBIN 30 PG (26.0-33.0); MEAN CORPUSCULAR HGB CONC 33 g/dl (31.0-36.0); MEAN CORPUSCULAR VOLUME 91 fL (82-100); MONOCYTES # (AUTO) 0.7 K/uL (0.1-1.30); MONOCYTES % (AUTO) 13.1 % (2.0-12.0); NEUTROPHILS # (AUTO) 3.1 K/uL (1.8-8.9); NEUTROPHILS % (AUTO) 57.9 % (43.0-81.0); PLATELET COUNT (AUTO) 271 K/uL (150-450); RED BLOOD CELL COUNT(AUTO) 4.37 MIL/uL (4.0-5.2); RED CELL DISTRIBUTION WIDTH 14.4 % (11.5-15.0); WHITE BLOOD COUNT (AUTO) 5.4 K/uL (4.3-11.0)
[2024-08-06 06:54] LABS: CALCIUM, SERUM 9.5 mg/dL (8.5-10.1); CARBON DIOXIDE 28 mmol/L (21-32); CHLORIDE 103 mmol/L (98-107); CREATININE 0.5 mg/dL (0.6-1.3); GLUCOSE 82 mg/dL (74-106); MAGNESIUM 2.2 mg/dL (1.8-2.4); PHOSPHORUS 3.2 mg/dL (2.5-4.9); POTASSIUM 4.4 mmol/L (3.5-5.1); SODIUM SERUM 138 mmol/L (136-145); UREA NITROGEN, BLOOD 30 mg/dL (7-18)
[2024-08-06] MEDS ORDERED: ANESTHESIA TRAY IN PYXIS 1 EA TRAY MC ONE (07:57)
[2024-08-06] MEDS ORDERED: BUPIVACAINE 0.25% 75 MG/30 ML VIAL ONE (07:57)
[2024-08-06] MEDS ORDERED: VANCOMYCIN 1 GM VIAL ONE (07:57)
[2024-08-06 08:00] VITALS: BP 138/51; TEMP 99.3; O2SAT 95
[2024-08-06] MEDS ORDERED: ALBUMIN 5% 250 ML IV ONE (08:13)
[2024-08-06] MEDS ORDERED: ROPIVACAINE HCL 0.5% 5 MG/ML 30ML VIAL ONE (08:13)
[2024-08-06] MEDS ORDERED: MIDAZOLAM HCL 2 MG/2ML VIAL ONE (08:13)
[2024-08-06] MEDS ORDERED: FAMOTIDINE/PF INJ 20 MG/2 ML VIAL IV ONE (08:14)
[2024-08-06] MEDS ORDERED: FENTANYL PF 100MCG/2ML AMPUL ONE (09:01)
[2024-08-06] MEDS ORDERED: LABETALOL HCL IV 100MG VIAL ONE (09:04)
[2024-08-06 16:00] VITALS: BP 158/69; TEMP 97.4; O2SAT 98
[2024-08-06] MEDS: CEFAZOLIN 2 GM in IV D5W 100 ML IV SCH (17:53)
[2024-08-06 18:00] VITALS: BP 138/51; TEMP 99.3; O2SAT 95
[2024-08-06 22:00] VITALS: BP 140/59; TEMP 98.6; O2SAT 94
[2024-08-07 04:00] VITALS: BP 105/53; TEMP 98.8; O2SAT 97
[2024-08-07 06:21] LABS: BASOPHILS # (AUTO) 0.1 K/uL (0.0-0.2); BASOPHILS % (AUTO) 0.6 % (0.0-2.0); EOSINOPHILS % (AUTO) 0.2 % (0.0-6.0); HEMATOCRIT 36 % (33-45); HEMOGLOBIN 12.1 g/dL (11.5-14.8); LYMPHOCYTES # (AUTO) 1.3 K/uL (0.8-4.8); LYMPHOCYTES % (AUTO) 15.7 % (20.0-44.0); MEAN CORPUSCULAR HEMOGLOBIN 30 PG (26.0-33.0); MEAN CORPUSCULAR HGB CONC 34 g/dl (31.0-36.0); MEAN CORPUSCULAR VOLUME 87 fL (82-100); MONOCYTES % (AUTO) 12.2 % (2.0-12.0); NEUTROPHILS % (AUTO) 71.3 % (43.0-81.0); PLATELET COUNT (AUTO) 341 K/uL (150-450); RED BLOOD CELL COUNT(AUTO) 4.09 MIL/uL (4.0-5.2); RED CELL DISTRIBUTION WIDTH 14.1 % (11.5-15.0); WHITE BLOOD COUNT (AUTO) 8.4 K/uL (4.3-11.0)
[2024-08-07 06:42] LABS: CALCIUM, SERUM 9.1 mg/dL (8.5-10.1); CARBON DIOXIDE 27 mmol/L (21-32); CHLORIDE 102 mmol/L (98-107); CREATININE 0.5 mg/dL (0.6-1.3); GLUCOSE 118 mg/dL (74-106); POTASSIUM 3.3 mmol/L (3.5-5.1); SODIUM SERUM 139 mmol/L (136-145); UREA NITROGEN, BLOOD 19 mg/dL (7-18)
[2024-08-07] MEDS: ASPIRIN 325 MG TABLET PO SCH (08:28)
[2024-08-07] MEDS: POTASSIUM CHLORIDE 20 MEQ TAB.PRT.SR PO SCH (10:14)
[2024-08-07 16:32] VITALS: BP 112/56
== END 2024-08-07 17:30 | DRG 493 ==
LOC: ER 21:58 → MED 23:39
PROVIDERS: ADMIT Nurse Practitioner Family; ATTEND Nurse Practitioner Acute Care
PROC: 0QSK04Z Reposition Left Fibula with Internal Fixation Device, Open Approach (ICD-10-PCS; principal; 2024-08-06)
PROC: 0QSH04Z Reposition Left Tibia with Internal Fixation Device, Open Approach (ICD-10-PCS; 2024-08-06)
DX: S82.852A Displaced trimalleolar fracture of left lower leg, initial encounter for closed fracture (principal); N39.0 Urinary tract infection, site not specified; F03.90 Unspecified dementia, unspecified severity, without behavioral disturbance, psychotic disturbance, mood disturbance, and anxiety; Z68.31 Body mass index [BMI] 31.0-31.9, adult; E66.9 Obesity, unspecified; I95.1 Orthostatic hypotension; E11.42 Type 2 diabetes mellitus with diabetic polyneuropathy; E78.5 Hyperlipidemia, unspecified; I11.0 Hypertensive heart disease with heart failure; I50.9 Heart failure, unspecified; E66.01 Morbid (severe) obesity due to excess calories; G89.29 Other chronic pain; Z90.49 Acquired absence of other specified parts of digestive tract; Z98.891 History of uterine scar from previous surgery; Z79.82 Long term (current) use of aspirin; Z79.4 Long term (current) use of insulin; Z79.84 Long term (current) use of oral hypoglycemic drugs; Z79.83 Long term (current) use of bisphosphonates; Z79.899 Other long term (current) drug therapy; W18.30XA Fall on same level, unspecified, initial encounter; Y92.009 Unspecified place in unspecified non-institutional (private) residence as the place of occurrence of the external cause; M19.90 Unspecified osteoarthritis, unspecified site; F03.A0 Unspecified dementia, mild, without behavioral disturbance, psychotic disturbance, mood disturbance, and anxiety; M81.0 Age-related osteoporosis without current pathological fracture; E11.65 Type 2 diabetes mellitus with hyperglycemia; E83.42 Hypomagnesemia; E87.6 Hypokalemia; Z78.1 Physical restraint status
CPT/HCPCS: 36415; 71045-TC; 73564-TC; 73600-TC; 73610-TC; 73700-TC; 80048-TC; 80053-TC; 80061-TC; 81001; 82962-TC; 83735-TC; 84100-TC; 85025-TC; 85610-TC; 85730-TC; 86850-TC; 87086-TC; 93970-TC; 97110-TC; 97530-TC; A4223; C1713; G0378; J0690; J0696; J1650; J1815; J2250; J2270; J2405; J2704; J2795; J3010; J3370; J3490; J7030; J7050; J7060; P9045

== ENCOUNTER 2025-02-07 15:07 | Inpatient (IN) | payer MEDICARE, OTHER ==
[~2025-02-07] VITALS: Ht 193 cm; Wt 82.1 kg
[~2025-02-07 15:07] MED LIST changes: -CIPR500S2 PO; +DOXY100T2 PO
[2025-02-07 17:31] LABS: BASOPHILS # (AUTO) 0.1 K/uL (0.0-0.2); BASOPHILS % (AUTO) 1.1 % (0.0-2.0); EOSINOPHILS # (AUTO) 0.3 K/uL (0.0-0.7); EOSINOPHILS % (AUTO) 4.2 % (0.0-6.0); HEMATOCRIT 36 % (33-45); HEMOGLOBIN 11.9 g/dL (11.5-14.8); LYMPHOCYTES # (AUTO) 1.9 K/uL (0.8-4.8); LYMPHOCYTES % (AUTO) 30.1 % (20.0-44.0); MEAN CORPUSCULAR HEMOGLOBIN 27 PG (26.0-33.0); MEAN CORPUSCULAR HGB CONC 33 g/dl (31.0-36.0); MEAN CORPUSCULAR VOLUME 80 fL (82-100); MONOCYTES # (AUTO) 0.5 K/uL (0.1-1.30); MONOCYTES % (AUTO) 8.2 % (2.0-12.0); NEUTROPHILS # (AUTO) 3.6 K/uL (1.8-8.9); NEUTROPHILS % (AUTO) 56.4 % (43.0-81.0); PLATELET COUNT (AUTO) 292 K/uL (150-450); RED BLOOD CELL COUNT(AUTO) 4.47 MIL/uL (4.0-5.2); RED CELL DISTRIBUTION WIDTH 18.5 % (11.5-15.0); WHITE BLOOD COUNT (AUTO) 6.4 K/uL (4.3-11.0)
[2025-02-07 17:43] LABS: CALCIUM, SERUM 10.1 mg/dL (8.5-10.1); CARBON DIOXIDE 27 mmol/L (21-32); CHLORIDE 104 mmol/L (98-107); GLUCOSE 141 mg/dL (74-106); SODIUM SERUM 138 mmol/L (136-145); UREA NITROGEN, BLOOD 41 mg/dL (7-18)
[2025-02-07 17:46] LABS: INR 0.98 (0.91-1.10); PARTIAL THROMBOPLASTIN TIME 23.7 SEC (24.3-34.3); PROTHROMBIN TIME 10.1 SECS (9.2-11.1)
[2025-02-07 17:48] LABS: ALANINE AMINOTRANSFERASE 17 U/L (12-78); ALBUMIN 3.7 g/dL (3.4-5.0); ALKALINE PHOSPHATASE 207 U/L (46-116); ASPARTATE AMINOTRANSFERASE 9 U/L (15-37); BILIRUBIN,DIRECT 0.2 mg/dL (0.0-0.2); BILIRUBIN,TOTAL 0.6 mg/dL (0.2-1.0); TOTAL PROTEIN, SERUM 7.2 g/dL (6.4-8.2)
[2025-02-07] MEDS: PIPERACILLIN /TAZOBACTAM 3.375 G in IV D5W 50 ML IV ONE (18:58)
[2025-02-07] MEDS: VANCOMYCIN 1 GM in IV D5W 250 ML IV ONE (19:12)
[2025-02-07] MEDS ORDERED: ASCO500T22 PO (19:31)
[2025-02-07] MEDS ORDERED: INSU100I4 SQ (19:31)
[2025-02-07] MEDS ORDERED: ASPI-1169 PO (19:31)
[2025-02-07] MEDS ORDERED: PSYLLIUM FIBER PO (19:31)
[2025-02-07] MEDS ORDERED: BISA10SU11 RC (19:31)
[2025-02-07] MEDS ORDERED: MAGN400O6 PO (19:31)
[2025-02-07] MEDS ORDERED: MULT-213 PO (19:31)
[2025-02-07] MEDS ORDERED: CARB-273 EACHEYE (19:31)
[2025-02-07] MEDS ORDERED: NA P133E RC (19:31)
[2025-02-07 21:00] VITALS: BP 105/57; TEMP 97.5; O2SAT 97
[2025-02-07] MEDS ORDERED: ONDANSETRON HCL/PF 4 MG/2 ML VIAL IVP PRN (23:30)
[2025-02-07] MEDS ORDERED: MAGNESIUM HYDROXIDE 30 ML UDC PO PRN (23:30)
[2025-02-07] MEDS ORDERED: DEXTROSE 50%-WATER 50 ML DISP.SYRIN IV PRN (23:30)
[2025-02-07] MEDS ORDERED: Z GUARD REMEDY 4 OZ OINT TP PRN (23:30)
[2025-02-08] MEDS ORDERED: BISACODYL SUPP (10 MG) 10 MG/SUPP.RECT SUPP.RECT RC PRN
[2025-02-08 04:00] VITALS: BP 136/59; TEMP 97.3; O2SAT 98
[2025-02-08 06:29] LABS: BASOPHILS # (AUTO) 0.1 K/uL (0.0-0.2); BASOPHILS % (AUTO) 1.1 % (0.0-2.0); EOSINOPHILS # (AUTO) 0.3 K/uL (0.0-0.7); EOSINOPHILS % (AUTO) 4.4 % (0.0-6.0); HEMATOCRIT 38 % (33-45); HEMOGLOBIN 12.6 g/dL (11.5-14.8); LYMPHOCYTES # (AUTO) 1.5 K/uL (0.8-4.8); LYMPHOCYTES % (AUTO) 25.8 % (20.0-44.0); MEAN CORPUSCULAR HEMOGLOBIN 27 PG (26.0-33.0); MEAN CORPUSCULAR HGB CONC 34 g/dl (31.0-36.0); MEAN CORPUSCULAR VOLUME 80 fL (82-100); MONOCYTES # (AUTO) 0.5 K/uL (0.1-1.30); MONOCYTES % (AUTO) 8.7 % (2.0-12.0); NEUTROPHILS # (AUTO) 3.5 K/uL (1.8-8.9); PLATELET COUNT (AUTO) 282 K/uL (150-450); RED BLOOD CELL COUNT(AUTO) 4.69 MIL/uL (4.0-5.2); RED CELL DISTRIBUTION WIDTH 18.7 % (11.5-15.0); WHITE BLOOD COUNT (AUTO) 5.9 K/uL (4.3-11.0)
[2025-02-08 06:33] LABS: CALCIUM, SERUM 10.3 mg/dL (8.5-10.1); CREATININE 0.8 mg/dL (0.6-1.3); MAGNESIUM 1.9 mg/dL (1.8-2.4); PHOSPHORUS 3.4 mg/dL (2.5-4.9); POTASSIUM 4.1 mmol/L (3.5-5.1)
[2025-02-08] MEDS: PANTOPRAZOLE 40 MG TABLET.DR PO SCH (07:30)
[2025-02-08] MEDS: BLOOD SUGAR DIAGNOSTIC 1 EACH STRIP IN SCH (07:30)
[2025-02-08 07:47] LABS: C-REACTIVE PROTEIN 0.24 mg/dL (0.0-0.30); THYROID STIMULATING HORMONE 1.28 uIU/mL (0.358-3.74)
[2025-02-08 08:00] VITALS: BP 130/62; TEMP 97.9; O2SAT 99
[2025-02-08] MEDS: IV NS 0.9% 1,000 ML IV PRN (08:14)
[2025-02-08] MEDS: busPIRone 5 MG TABLET PO SCH (09:00)
[2025-02-08] MEDS: CALCIUM CARBONATE (1250) 500 MG TABLET PO SCH (09:00)
[2025-02-08] MEDS: MEMANTINE HCL 5 MG TABLET PO SCH (09:00)
[2025-02-08] MEDS: CARVEDILOL 6.25 MG TABLET PO SCH (09:00)
[2025-02-08] MEDS: MULTIVIT W/MINERALS 1 TAB TABLET PO SCH (09:00)
[2025-02-08] MEDS: ASPIRIN 81 MG TAB.CHEW PO SCH (09:00)
[2025-02-08] MEDS: AMLODIPINE BESYLATE 10 MG TABLET PO SCH (09:00)
[2025-02-08] MEDS: DOXYCYCLINE HYCLATE (100 MG) 100 MG TABLET PO SCH (09:00)
[2025-02-08] MEDS: ASCORBIC ACID 500 MG TABLET PO SCH (09:00)
[2025-02-08] MEDS: POLYVINYL ALCOHOL 15 ML BOTTLE EACHEYE SCH (09:00)
[2025-02-08] MEDS: EMPAGLIFLOZIN 25 MG TABLET PO SCH (09:00)
[2025-02-08 12:00] VITALS: BP 130/62; TEMP 97.9; O2SAT 99
[2025-02-08] MEDS: MUPIROCIN OINT 2% 22 GM TUBE TP SCH (18:01)
[2025-02-08 20:00] VITALS: BP 120/80
[2025-02-08] MEDS: OLANZAPINE 10 MG VIAL IM ONE (21:25)
[2025-02-08] MEDS: INSULIN GLARGINE, 100 UNIT/ML CARTRIDGE SQ SCH (22:00)
[2025-02-08] MEDS: ATORVASTATIN 40 MG TABLET PO SCH (22:00)
[2025-02-09 04:00] VITALS: BP 134/62; TEMP 97.7; O2SAT 98
[2025-02-09 06:27] LABS: BASOPHILS # (AUTO) 0.1 K/uL (0.0-0.2); EOSINOPHILS # (AUTO) 0.1 K/uL (0.0-0.7); EOSINOPHILS % (AUTO) 2.6 % (0.0-6.0); HEMATOCRIT 39 % (33-45); HEMOGLOBIN 12.7 g/dL (11.5-14.8); LYMPHOCYTES # (AUTO) 1.8 K/uL (0.8-4.8); LYMPHOCYTES % (AUTO) 30.9 % (20.0-44.0); MEAN CORPUSCULAR HEMOGLOBIN 26 PG (26.0-33.0); MEAN CORPUSCULAR HGB CONC 32 g/dl (31.0-36.0); MEAN CORPUSCULAR VOLUME 81 fL (82-100); MONOCYTES # (AUTO) 0.6 K/uL (0.1-1.30); NEUTROPHILS % (AUTO) 53.5 % (43.0-81.0); PLATELET COUNT (AUTO) 311 K/uL (150-450); RED BLOOD CELL COUNT(AUTO) 4.87 MIL/uL (4.0-5.2); RED CELL DISTRIBUTION WIDTH 19.2 % (11.5-15.0); WHITE BLOOD COUNT (AUTO) 5.7 K/uL (4.3-11.0)
[2025-02-09 06:40] LABS: CALCIUM, SERUM 10.4 mg/dL (8.5-10.1); MAGNESIUM 1.9 mg/dL (1.8-2.4); PHOSPHORUS 3.7 mg/dL (2.5-4.9); POTASSIUM 4.3 mmol/L (3.5-5.1)
[2025-02-09] MEDS: INSULIN REGULAR, HUMAN 100 UNIT/ML 3 ML VIAL SQ PRN (06:54)
[2025-02-09 08:00] VITALS: BP 112/85; TEMP 97.7; O2SAT 98
[2025-02-09] MEDS: FERROUS SULFATE (325 MG) 325 MG/TAB TABLET PO SCH (09:00)
[2025-02-09] MEDS ORDERED: LORAZEPAM 1 MG TABLET PO PRN (11:30)
[2025-02-09 12:00] VITALS: TEMP 98
[2025-02-09] MEDS: busPIRone 5 MG TABLET PO SCH (13:04)
[2025-02-09] MEDS: OLANZAPINE 2.5 MG TABLET PO SCH (16:21)
[2025-02-09 20:00] VITALS: BP 119/55; TEMP 97.5; O2SAT 98
[2025-02-09 20:01] VITALS: O2SAT 98
[2025-02-10 04:00] VITALS: BP 128/51; TEMP 97.3; O2SAT 96
[2025-02-10 04:01] VITALS: O2SAT 96
[2025-02-10 08:00] VITALS: BP 124/58; TEMP 97.7; O2SAT 96
[2025-02-10] MEDS: ALENDRONATE 70 MG TABLET PO SCH (08:51)
[2025-02-10] MEDS: THERAHONEY GEL 1.5 OZ TUBE TP SCH (15:01)
[2025-02-10 16:00] VITALS: BP 124/57; TEMP 97.3; O2SAT 96
[2025-02-11] VITALS: BP 137/61; TEMP 98.8; O2SAT 98
[2025-02-11] MEDS: ACETAMINOPHEN 325 MG TABLET PO PRN (09:33)
[2025-02-11 13:14] VITALS: BP 128/62; TEMP 98; O2SAT 99
[2025-02-11 18:01] VITALS: BP 122/74; TEMP 98
[2025-02-11 20:00] VITALS: BP 146/61; TEMP 98; O2SAT 98
[2025-02-12 04:00] VITALS: BP 114/51; TEMP 97.9; O2SAT 98
[2025-02-12] MEDS: MUPIROCIN OINT 2% 22 GM TUBE TP SCH (06:00)
[2025-02-12] MEDS ORDERED: MUPIROCIN OINT 2% 22 GM TUBE TP SCH (06:34)
[2025-02-12 06:49] LABS: EOSINOPHILS # (AUTO) 0.2 K/uL (0.0-0.7); EOSINOPHILS % (AUTO) 4.7 % (0.0-6.0); HEMATOCRIT 36 % (33-45); HEMOGLOBIN 12.1 g/dL (11.5-14.8); LYMPHOCYTES # (AUTO) 1.6 K/uL (0.8-4.8); LYMPHOCYTES % (AUTO) 31.3 % (20.0-44.0); MEAN CORPUSCULAR HEMOGLOBIN 27 PG (26.0-33.0); MEAN CORPUSCULAR HGB CONC 34 g/dl (31.0-36.0); MEAN CORPUSCULAR VOLUME 81 fL (82-100); MONOCYTES # (AUTO) 0.4 K/uL (0.1-1.30); MONOCYTES % (AUTO) 8.6 % (2.0-12.0); NEUTROPHILS # (AUTO) 2.7 K/uL (1.8-8.9); NEUTROPHILS % (AUTO) 54.4 % (43.0-81.0); PLATELET COUNT (AUTO) 252 K/uL (150-450); RED BLOOD CELL COUNT(AUTO) 4.44 MIL/uL (4.0-5.2); RED CELL DISTRIBUTION WIDTH 18.4 % (11.5-15.0)
[2025-02-12 07:51] LABS: ALANINE AMINOTRANSFERASE 32 U/L (12-78); ALBUMIN 3.4 g/dL (3.4-5.0); ALKALINE PHOSPHATASE 159 U/L (46-116); ASPARTATE AMINOTRANSFERASE 21 U/L (15-37); BILIRUBIN,TOTAL 0.6 mg/dL (0.2-1.0); CALCIUM, SERUM 9.5 mg/dL (8.5-10.1); CARBON DIOXIDE 31 mmol/L (21-32); CHLORIDE 106 mmol/L (98-107); CREATININE 0.8 mg/dL (0.6-1.3); GLUCOSE 78 mg/dL (74-106); MAGNESIUM 1.8 mg/dL (1.8-2.4); PHOSPHORUS 3.8 mg/dL (2.5-4.9); POTASSIUM 3.8 mmol/L (3.5-5.1); SODIUM SERUM 140 mmol/L (136-145); UREA NITROGEN, BLOOD 26 mg/dL (7-18)
[2025-02-12 09:24] VITALS: BP 130/64; TEMP 98; O2SAT 0
[2025-02-12] MEDS ORDERED: Olanzapine PO (10:29)
[2025-02-12] MEDS ORDERED: BUSP5TAB3 PO (10:29)
[2025-02-12 12:45] VITALS: BP 139/63; TEMP 98; O2SAT 99
== END 2025-02-12 13:34 | DRG 857 ==
LOC: ER 15:11 → MEDSG1 20:30
PROVIDERS: ADMIT Nurse Practitioner Family; ATTEND Student in an Organized Health Care Education/Training Program
PROC: 0JBR0ZZ Excision of Left Foot Subcutaneous Tissue and Fascia, Open Approach (ICD-10-PCS; principal; 2025-02-11)
DX: T81.49XA Infection following a procedure, other surgical site, initial encounter (principal); F03.94 Unspecified dementia, unspecified severity, with anxiety; L03.116 Cellulitis of left lower limb; N17.9 Acute kidney failure, unspecified; L97.322 Non-pressure chronic ulcer of left ankle with fat layer exposed; E11.622 Type 2 diabetes mellitus with other skin ulcer; E11.42 Type 2 diabetes mellitus with diabetic polyneuropathy; I11.0 Hypertensive heart disease with heart failure; I50.9 Heart failure, unspecified; Z66 Do not resuscitate; Z79.4 Long term (current) use of insulin; Z79.82 Long term (current) use of aspirin; Z79.84 Long term (current) use of oral hypoglycemic drugs; Z79.899 Other long term (current) drug therapy; Z98.890 Other specified postprocedural states; E78.5 Hyperlipidemia, unspecified; G89.29 Other chronic pain; Z90.49 Acquired absence of other specified parts of digestive tract; Z98.891 History of uterine scar from previous surgery; Z79.83 Long term (current) use of bisphosphonates; D64.9 Anemia, unspecified; E66.9 Obesity, unspecified; Z91.148 Patient's other noncompliance with medication regimen for other reason; E11.65 Type 2 diabetes mellitus with hyperglycemia; Z68.22 Body mass index [BMI] 22.0-22.9, adult; Y83.8 Other surgical procedures as the cause of abnormal reaction of the patient, or of later complication, without mention of misadventure at the time of the procedure; Y92.129 Unspecified place in nursing home as the place of occurrence of the external cause; F41.9 Anxiety disorder, unspecified; E11.51 Type 2 diabetes mellitus with diabetic peripheral angiopathy without gangrene; I70.208 Unspecified atherosclerosis of native arteries of extremities, other extremity
CPT/HCPCS: 36415; 71045-TC; 73610-TC; 80048-TC; 80053-TC; 80061-TC; 80076-TC; 82728-TC; 82962-TC; 83540-TC; 83605-TC; 83735-TC; 84100-TC; 84443-TC; 85025-TC; 85730-TC; 86140-TC; 87040-TC; 87081-TC; 93926-TC; A6403; G0378; J1815; J2543; J3370; J3490; J7060